=== PATIENT | female | born 1955 | race Caucasian/White ===

== ENCOUNTER 2016-11-17 12:27 | Inpatient (IN) | payer MEDICAID ==
[~2016-11-17] VITALS: Ht 157.5 cm; Wt 48.0 kg
--- NOTE | ~2016-11-17 | OR ---
ADMIT: 11/17/2016 RM/LOC: 307 [facility] MR#: [id number] [address] [address] JIM BRYANT [address] [place] [address] Operative/Delivery Room Report SEX: F AGE: 61 : 1955 SURGERY DATE: 11/21/2016 SURGEON: Addison Oliveira MD PREOPERATIVE DIAGNOSES: Anemia, upper GI bleed. POSTOPERATIVE DIAGNOSIS: Duodenal ulcer with active bleeding. PROCEDURE PERFORMED: Upper endoscopy with injection and cauterization of bleeding duodenal ulcer. ANESTHESIA: Sedation. ESTIMATED BLOOD LOSS: Approximately 50 mL of blood within the stomach and duodenum. DESCRIPTION OF PROCEDURE: After appropriate informed consent was obtained, the patient was brought to the endoscopy suite. IV sedation was provided. A well-lubricated endoscope was introduced and passed down the esophagus. The esophageal mucosa appeared normal throughout. Once again in the stomach though, there was a fair bit of blood and fresh clot within the stomach. This was suctioned out. The gastric mucosa really appeared normal throughout, but her stomach was quite dilated. I was able to get through the ampulla which was wide open in the duodenal bulb, and there was fresh blood in that area. Beginning into the second portion of the duodenum became quite a challenge just because of the distended nature of her stomach, the scope kept looping up. It was difficult to get any forward pressure and to get around the curve of the duodenum into the second portion. Ultimately, I had to roll her onto her back and used pressure on her abdomen just to hold the stomach from being so large. With some pressure on the outside of her stomach and then with the scope, I was able to advance the scope down into the duodenum further. There was almost a little bit of a stricture in the second portion of the duodenum, but I was able to pop through that area, and the remainder of the second portion and the third portion of the duodenum appeared normal. As I pulled the scope slowly back, I irrigated all the clot and fluid out of there. I was able to find just a very small ulceration right in the midportion of the second portion of the duodenum. There was some active bleeding from it. So, I used the epinephrine mixture and injection needle. I was able to inject ADMIT: 11/17/2016 RM/LOC: 307 [facility] MR#: [id number] 2620 [facility] [address] [place], [place] [address] JIM BRYANT [address] [place] [address] Operative/Delivery Room Report SEX: F AGE: 61 : 1955 circumferentially around this ulcer and then right in the center of it. I also used the hot biopsy forceps to further cauterize the base of this ulcer. I watched it for several minutes and it did appear hemostatic. The scope was then pulled back to stomach. Again, the gastric mucosa was irrigated off. I retroflexed the scope, did not see any evidence of a hiatal hernia. I then reinspected the second portion of the duodenum. Again, it was just difficult to get down to that area with the scope, but it appeared dry and there was no further bleeding from that duodenal ulcer. The stomach was then deflated and the scope withdrawn without apparent complications. The patient tolerated the procedure well and was taken to the recovery room in stable condition. Addison Oliveira MD/ brittani JOB #: [id number] CC: Darren Benjamin, Attending Physician Darren Benjamin, Family Physician Darren Benjamin, DO
[~2016-11-17 12:27] MED LIST: AMBIEN DPS10 MG PO; AMBIEN10 MG PO; ASA CHILDREN'S81 MG PO; ASA325 MG PO; ASPIR 8181 MG PO; AUGMENTIN875 MG PO; BUSPAR DPS10 MG PO; BUSPAR5 MG PO; DELTASONE DPS10 MG PO; DELTASONE DPS20 MG PO; DULERA 200/58.8 GM IH; DUONEB DPS3 ML IH; DUONEB DPS3 ML PO; IMODIUM DPS2 MG PO; ISOPTIN SR TAB120 MG PO; LEVAQUIN DPS500 MG PO; LEVAQUIN500 MG PO; MAALOX DPS30 ML PO; MEDROL DOSEP4 MG/TAB PO; NORCO 5-325 TA1 EACH PO; OMNICEF DPS300 MG PO; PEPCID DPS20 MG PO; PROTONIX40 MG PO; PROVENTIL HFA6.7 GM IH; ROBITUSSIN AC D30 ML PO; SPIRIVA18 MCG IH; SURFAK DPS240 MG PO; SURFAK240 MG PO; SYMBICORT 16010.2 GM IH; SYMBICORT160 MCG/6 IH; SYMBICORT80 MCG/6.9 IH; THERA1 EACH PO; TYLENOL DPS325 MG PO; TYLENOL-DPS650 MG PR; TYLENOL325 MG PO; ULTRAM DPS50 MG PO; XANAX DPS1 MG PO; XANAX1 MG PO; XOPENEX HFA15 GM IH; ZITHROMAX500 MG PO; ZOLOFT DPS100 MG PO; ZOLOFT DPS50 MG PO
--- NOTE | 2016-11-23 08:25 | HP ---
ADMIT: 11/17/2016 RM/LOC: W.12 [facility] MR#: [id number] [facility]#: [id number] [address] [address] JIM BRYANT [address] [place] [address] History and Physical SEX: F AGE: 61 : 1955 DATE OF SERVICE: 11/17/2016 REASON FOR HOSPITALIZATION: Acute exacerbation of COPD. HISTORY OF PRESENT ILLNESS: This is a 61-year-old female patient of [place], who has chronic severe COPD. She has been struggling over the last week at home with increased cough, congestion, sputum production, shortness of breath, weakness, and in fact fell while walking to the bathroom recently and received a contusion to her right periorbital area. She came to the clinic today where she was found to have wheezes and resting dyspnea. She has an O2 saturation of 88% and is now being admitted for further care. PAST MEDICAL HISTORY: As outlined with COPD, severe nature, recurrent hospitalization for exacerbation of such. She has a history of cannabis and drug abuse. She has a medical history of anxiety and depression. SOCIAL HISTORY: She is on and off illicit drugs. She is , lives at home with her . FAMILY HISTORY: Noncontributory. MEDICATIONS: 1. Alprazolam. 2. Aspirin. 3. Buspirone. 4. Dulera. 5. DuoNebs. 6. Maalox. 7. Oxygen. 8. Sertraline. 9. Spiriva. 10.Verapamil. 11.Xopenex. 12.Zithromax. 13.Zofran. For specifics of dosing, please refer to her admission orders. REVIEW OF SYSTEMS: As outlined above. No nausea, vomiting, diarrhea, constipation, or bleeding. PHYSICAL EXAMINATION: GENERAL: She is thin, frail, and in no apparent distress. ADMIT: 11/17/2016 RM/LOC: W.12 [facility] MR#: [id number] [address] [address] JIM BRYANT [address] [place] [address] History and Physical SEX: F AGE: 61 : 1955 VITAL SIGNS: Her blood pressure is 108/62. She does have some congestion and dyspnea in conversation. Sat is 88% to 91% with 2.5 L of oxygen per nasal cannula. NECK: No JVD or bruit. LUNGS: Bilateral rhonchi posteriorly. HEART: Regular, thin. EXTREMITIES: No edema. IMPRESSION: Acute exacerbation of chronic obstructive pulmonary disease. PLAN: Admit IV steroids, IV antibiotic therapy, nebulized treatments, and support. Darren Benjamin DO/ modl JOB #: [id number] CC: Darren Benjamin, Attending Physician Darren Benjamin, Family Physician
[2016-12-01] MEDS ORDERED: LORTAB 7.5-3251 EACH PO (14:48)
[2016-12-01] MEDS ORDERED: DELTASONE DPS10 MG PO (14:50)
--- NOTE | 2016-12-15 09:04 | OR ---
ADMIT: 11/17/2016 RM/LOC: 311 [facility] MR#: [id number] [address] [address] JIM BRYANT [address] [place] [address] Operative/Delivery Room Report SEX: F AGE: 61 : 1955 SURGERY DATE: 11/22/2016 SURGEON: Addison Oliveira MD PREOPERATIVE DIAGNOSES: Free air, free fluid, probable perforated bowel. POSTOPERATIVE DIAGNOSIS: Duodenal ulcer in the second portion of the duodenum. PROCEDURE PERFORMED: 1. Exploratory laparotomy, opening of perforated duodenal ulcer in the 2nd portion of the duodenum and closure with a Fxzzxmv-Abvtkimu-hxec pyloroplasty. 2. Placement of feeding jejunostomy. MUTUAL FUND ACCOUNTANT: DEANDRE Loredo ANESTHESIA: General endotracheal. ESTIMATED BLOOD LOSS: Approximately 100 mL. DESCRIPTION OF PROCEDURE: After appropriate informed consent was obtained, the patient was brought to the operating room. It should be noted that she unfortunately had quite a bit of pain that began suddenly yesterday and has continued on to the point where I ordered a CT scan to try to evaluate what was causing this, and that showed free air and free fluid in the abdomen mostly near where her duodenal ulcer was located, so I felt that she required laparotomy to repair this and to evacuate all the fluid and air in her belly. Once the patient was asleep, her abdomen was prepped and draped in a sterile fashion. An upper midline incision was created. This was carried deep with cautery. The peritoneum was opened sharply. The remainder of the incision was opened with cautery. Once in the abdomen, there was a fair bit of ascitic fluid and bilious fluid in the abdomen. Obviously, some free air also. She had obvious bowel perforation and intraabdominal sepsis from this. I did inspect her stomach which looked normal, but there was a lot of edema and fluid in the tissue around the duodenum. So, I started by opening the hepatic flexure attachments, mobilizing the colon down a little bit and getting down to the duodenum, and then kocherizing and mobilizing the duodenum from lateral to medial. In doing so, again there was a lot of bile stained fluid and tissue in the retroperitoneum. As I reflected the duodenum up, the second portion of the duodenum appeared to be where the perforation was located. It is about a cm past the pylorus. I was able to identify just a small, only about 2 or 3 mm diameter hole, and this was clearly where the fluid and gastric and bilious contents were escaping. Since she had continued to have maroon-colored stools and had dropped her hemoglobin, I wanted to make sure there was not something still actively bleeding in the duodenum, so I did open using this ulceration as my starting point. I opened the duodenum and since it was close to the pylorus, I ended up opening through the pylorus also, and I opened this in a lengthwise fashion along the length of the duodenum back ADMIT: 11/17/2016 RM/LOC: 311 [facility] MR#: [id number] [address] [address] [place] [address] Operative/Delivery Room Report SEX: F AGE: 61 : 1955 onto the stomach. I then extended that incision a little bit distally on the duodenum also to give good exposure to the 2nd portion of the duodenum, the duodenal bulb, the duodenal bulb, and even into the distal stomach. There did not appear to be anything actively bleeding, so I was comfortable that there was no ongoing blood loss from the duodenum. I had to close this opening, and I closed it in a transverse fashion, a Dpqhjdt-Wiakvnwb-fhhk pyloroplasty closure. This was done with 2 3-0 PDS sutures started on either end in a running fashion and tied in the middle. Then, I used multiple 3-0 silk sutures to further imbricate that closure with serosal sutures. With the duodenum closed, I placed a 19-Botswanan round Eben drain through a separate stab incision on the patient's right side. This was placed up around my closure site. The abdomen was then copiously irrigated out with a couple L of saline. All the bilious fluid and gastric contents were suctioned out. I then elected to place a feeding jejunostomy since she was already malnourished and would have an NG tube for a while and then could feed her for a while and wanted to be able to give her enteral nutrition. So, I identified the ligament of Treitz and went about 15 cm distal to that, I placed a pursestring suture with 3-0 silk suture in the antimesenteric surface of the jejunum, made a small incision, and placed a 12-Botswanan red rubber catheter in through that incision. I tied down the pursestring suture, and then I wet sealed in the feeding tube with several additional 3-0 silk sutures. The stab incision was made in the left upper quadrant. The end of the feeding tube was brought up and out through the abdominal wall, and then a couple of my silk sutures were used to tack the jejunum up against the abdominal wall. With this accomplished, and when I was satisfied with hemostasis, the midline fascia wound was then closed with running looped #1 PDS sutures starting at either end and tied in the middle. The skin was then loosely closed with skin anabella. The drains were sewn into place and the drain was placed to bulb suction, and the catheter plug was placed in the jejunal feeding tube. Edy Zarate assisted in this entire procedure. His help was necessary for retraction. Addison Oliveira MD/ brittani JOB #: [id number] CC: Darren Benjamin, Attending Physician Darren Benjamin, Family Physician Darren Benjamin, DO
--- NOTE | 2016-12-15 09:04 | CO ---
ADMIT: 11/17/2016 RM/LOC: 307 [facility] MR#: [id number] [address] [address] JIM BRYANT [address] [place] [address] Consultation SEX: F AGE: 61 : 1955 DATE OF CONSULTATION: 11/21/2016 ATTENDING PHYSICIAN: Darren Benjamin CONSULTING PHYSICIAN: Addison Oliveira MD CHIEF COMPLAINT: Anemia and melena, probable upper GI bleed. HISTORY OF PRESENT ILLNESS: This is a 61-year-old female patient, who I was asked to see in surgical consultation. The patient has had acute blood loss. Hemoglobin from 10 down around 7, and obvious melenic stools. No abdominal pain with this. She has had an ulcer in the past, it sounds like. On exam, her abdomen is soft, thin, nondistended, and nontender. ASSESSMENT: Probable upper GI bleed. PLAN: I have recommended proceeding with EGD. I have gone through risks and benefits of this procedure. She understands and agrees procedure. Addison Oliveira MD/ brittani JOB #: [id number] CC: Darren Benjamin, Attending Physician Darren Benjamin, Family Physician
[2016-12-28] MEDS ORDERED: ACETADOTE D200 MG/ML IH (16:18)
[2016-12-28] MEDS ORDERED: CARAFATE DPS1 GM PO (16:20)
[2016-12-28] MEDS ORDERED: KLOR-CON20 MEQ PO (16:21)
[2016-12-28] MEDS ORDERED: VANCOCIN125 MG PO (16:21)
[2016-12-28] MEDS ORDERED: IMODIUM DPS2 MG PO (16:22)
[2016-12-28] MEDS ORDERED: AMOXICILLIN875 MG PO (16:23)
--- NOTE | 2017-01-18 08:23 | DS ---
ADMIT: 11/17/2016 RM/LOC: 431 [facility] MR#: [id number] ACC#: [id number] [address] [address] JIM BRYANT [address] [place] [address] Discharge Summary SEX: F AGE: 61 : 1955 ADMISSION DATE: 11/17/2016 DISCHARGE DATE: 11/30/2016 REASON FOR HOSPITALIZATION: Acute exacerbation of chronic obstructive pulmonary disease. HISTORY OF PRESENT ILLNESS: This is a 61-year-old female patient, who has chronic severe COPD, end-stage disease. She had been struggling over the week prior to admission at home with increased cough, congestion, sputum production, shortness of breath, and weakness. She had fallen while walking to her bathroom and received contusions over her periorbital area. She came to my clinic where she was found to have an O2 saturation of 88%, wheezes, and resting dyspnea. We decided to admit her for further care and management. HOSPITAL COURSE: She was admitted to the hospital, started on her usual home regimen of therapies. She did have some suspected upper GI bleeding and anemia, and on further evaluation we asked Dr. Oliveira to investigate and consult. She went to the procedure room, and underwent an upper GI endoscopy where she was found to have a duodenal ulcer with active bleeding. This was injected and cauterized. We monitored her hemoglobin, hematocrit thereafter and it remained stable with no further evidence of bleeding. We did place her on appropriate proton pump inhibitor and ulcer management. She was also on steroids, IV Zosyn, DuoNeb, and management of her COPD. She was severely malnourished. We did ask Nutrition to consult and assist with caloric supplement recommendations. On chest x-ray, she was found to have a right pulmonary opacities consistent with pneumonia. Gram stain, C and S was performed. We did not continue with aspirin or Lovenox once we found the bleeding ulcer. We did give her packed red blood cells because she was tachycardic and had acute blood loss anemia. On 11/22, we decided we could wean her steroids and downgraded her status to telemetry. She was stable at that point. She was complaining of tender abdomen, and Dr. Oliveira did have her undergo CAT scan evaluation on the . At that point, she was found to have evidence of perforation, and Dr. Oliveira took her to the operating room for laparotomy. He found that her duodenal ulcer had perforated. He did surgically repair this perforation and placed a J-tube for nutritional support. She had a slow postoperative recovery, and we did provide her nutritional support through her J-tube. We managed her pain and anxiety, and after long hospital course, she was finally able to progress and receive physical therapy. We however felt that she was too weak to be returned to her home setting, and therefore she was agreeable to [facility]. On 11/28, we began a transition to oral medication management, and on 11/29, we ADMIT: 11/17/2016 RM/LOC: 431 [facility] MR#: [id number] [address] [address] [facility] [address] Discharge Summary SEX: F AGE: 61 : 1955 made preparations for transition to skilled care. On the morning of 11/30/2016, she was dismissed to [facility] with tube feedings. She was free to return to see me in 10 to 14 days with a repeat complete blood cell count. She was to go on a tapering course of prednisone. FINAL DIAGNOSES: 1. Exacerbation of chronic obstructive pulmonary disease with pneumonia. 2. Perforated duodenal ulcer with surgical repair. 3. Acute blood loss anemia. 4. Malnutrition. 5. Chronic pain. 6. Severe chronic obstructive pulmonary disease. Darren Benjamin DO/ ovil JOB #: [id number] CC: Darren Benjamin DO, Attending Physician Darren Benjamin DO, Family Physician
[2017-01-23] MEDS ORDERED: VORICONAZOLE200 MG PO (15:15)
[2017-02-17] MEDS ORDERED: VFEND200 MG PO (14:09)
[2017-02-17] MEDS ORDERED: NITROSTAT0.4 MG SL (14:11)
[2017-03-04] MEDS ORDERED: PROTONIX40 MG PO (20:09)
[2017-03-04] MEDS ORDERED: MUCINEX600 MG PO (20:09)
[2017-03-04] MEDS ORDERED: ACETYLCYSTEINE 20% IH (20:12)
[2017-03-04] MEDS ORDERED: SPIRIVA18 MCG IH (20:13)
[2017-03-04] MEDS ORDERED: HYDROCODON-ACE1 EAC6 PO (20:14)
[2017-03-04] MEDS ORDERED: XANAX DPS1 MG PO (20:14)
[2017-03-04] MEDS ORDERED: TYLENOL325 MG PO (20:14)
[2017-03-04] MEDS ORDERED: FLAGYL-DPS500 MG PO (20:15)
[2017-03-04] MEDS ORDERED: SLOW-MAG71.5 MG PO (20:16)
[2017-03-04] MEDS ORDERED: TIAZAC180 MG PO (20:16)
[2017-03-04] MEDS ORDERED: COLACE-DPS100 MG PO (20:16)
[2017-03-04] MEDS ORDERED: MAALOX DPS30 ML PO (20:16)
[2017-03-04] MEDS ORDERED: PROVENTIL2.5 MG/3 M IH (20:17)
[2017-03-04] MEDS ORDERED: LASIX DPS40 MG PO (20:17)
[2017-03-04] MEDS ORDERED: KLOR-CON M2020 ME1 PO (20:18)
[2017-04-12] MEDS ORDERED: VIGAMOX3 ML OD (12:17)
[2017-04-12] MEDS ORDERED: DUREZOL5 ML OD (12:19)
[2017-04-12] MEDS ORDERED: CULTURELLE1 CAP PO (12:19)
[2017-04-12] MEDS ORDERED: VANCOCIN125 MG PO (12:20)
[2017-04-12] MEDS ORDERED: PEPCID DPS20 MG PO (12:20)
[2017-04-12] MEDS ORDERED: [UNRECOGNIZED DRUG - OTHER] OD (12:21)
[2017-05-17] MEDS ORDERED: PROVENTIL2.5 MG/3 M IH (13:41)
[2017-05-17] MEDS ORDERED: DELTASONE DPS20 MG PO (13:43)
[2017-05-27] MEDS ORDERED: COLACE-DPS100 MG PO (14:06)
[2017-05-27] MEDS ORDERED: AUGMENTIN 875-1 EACH PO (14:06)
[2017-05-27] MEDS ORDERED: MAALOX DPS30 ML PO (14:07)
[2017-05-27] MEDS ORDERED: IMODIUM DPS2 MG PO (14:07)
[2017-06-12] MEDS ORDERED: ACETYLCYST200 MG/11 IH (14:25)
[2017-06-12] MEDS ORDERED: DULERA 200/58.8 GM IH (14:25)
[2017-06-12] MEDS ORDERED: VFEND200 MG PO (14:26)
[2017-06-12] MEDS ORDERED: DUONEB DPS3 ML IH (14:26)
[2017-06-12] MEDS ORDERED: SPIRIVA18 MCG IH (14:26)
[2017-06-12] MEDS ORDERED: PRILOSEC DPS20 MG PO (14:26)
[2017-06-12] MEDS ORDERED: POTASSIUM CHLO20 ME2 PO (14:26)
[2017-06-12] MEDS ORDERED: ZOLOFT100 MG PO (14:27)
[2017-06-12] MEDS ORDERED: DILTIAZEM ER180 M1 PO (14:27)
[2017-06-12] MEDS ORDERED: DELTASONE DPS10 MG PO (14:27)
[2017-06-12] MEDS ORDERED: MAGNESIUM30 MG PO (14:28)
[2017-06-12] MEDS ORDERED: NORCO 5-325 TA1 EACH PO (14:28)
[2017-06-12] MEDS ORDERED: PROAIR RESPICL90 MCG IH (14:29)
[2017-06-12] MEDS ORDERED: TYLENOL DPS325 MG PO (14:29)
[2017-06-12] MEDS ORDERED: LIDOPATCH1 EACH TD (14:31)
== END 2016-11-30 09:21 | DRG 981 ==
LOC: 4PCU 12:27 → 3ICU 12:27 → WOR 12:27 → 4PCU 16:20 → 3ICU 11-21 14:42 → 4PCU 11-25 23:30
PROVIDERS: ADMIT Internal Medicine
PROC: 0W3P8ZZ Control Bleeding in Gastrointestinal Tract, Via Natural or Artificial Opening Endoscopic (ICD-10-PCS; 2016-11-21)
PROC: 0DHA0UZ Insertion of Feeding Device into Jejunum, Open Approach (ICD-10-PCS; principal; 2016-11-22)
PROC: 0DQ90ZZ Repair Duodenum, Open Approach (ICD-10-PCS; principal; 2016-11-22)
PROC: 0DQ70ZZ Repair Stomach, Pylorus, Open Approach (ICD-10-PCS; principal; 2016-11-22)
PROC: 30233N1 Transfusion of Nonautologous Red Blood Cells into Peripheral Vein, Percutaneous Approach (ICD-10-PCS; 2016-11-24)
DX: J44.0 Chronic obstructive pulmonary disease with (acute) lower respiratory infection (principal); J18.9 Pneumonia, unspecified organism; K26.6 Chronic or unspecified duodenal ulcer with both hemorrhage and perforation; J96.10 Chronic respiratory failure, unspecified whether with hypoxia or hypercapnia; E46 Unspecified protein-calorie malnutrition; D62 Acute posthemorrhagic anemia; Z68.1 Body mass index [BMI] 19.9 or less, adult; J44.1 Chronic obstructive pulmonary disease with (acute) exacerbation; F32.9 Major depressive disorder, single episode, unspecified; F41.9 Anxiety disorder, unspecified; Z79.82 Long term (current) use of aspirin; Z79.52 Long term (current) use of systemic steroids

== ENCOUNTER 2016-12-18 10:29 | Observation (INO) | payer MEDICAID ==
[~2016-12-18] VITALS: Ht 157.5 cm; Wt 47.5 kg
--- NOTE | ~2016-12-18 | CO ---
ADMIT: 12/18/2016 RM/LOC: 421 [facility] MR#: [id number] [address] [address] JIM BRYANT [address] [place] [address] Consultation SEX: F AGE: 61 : 1955 DATE OF CONSULTATION: 12/26/2016 ATTENDING PHYSICIAN: Darren Benjamin CONSULTING PHYSICIAN: Seth Castro MD HISTORY OF PRESENT ILLNESS: She is 61. Jim is hospitalized on numerous occasions with recurrent pneumonia. She has been oxygen dependent at home for the last 1 year. Jim used to smoke pot, which she thinks she has given up 1 month ago. She is also narcotic dependent, takes her 's narcotics. Her is a colon cancer survivor. Jim has not been a tobacco abuser. She denies any alcohol use. 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 She has DuoNeb at home, she takes 4 times a day. She uses Dulera and also Spiriva. She was in the hospital with bleeding upper GI ulcer, had EGD. She had a feeding tube placed. She also had an exploratory laparotomy and pyloroplasty done at that time by Dr. Oliveira. She was in the hospital from the 12th of this month and with pneumonia. She is getting antibiotics in the form of vancomycin and Zosyn. She also has C. diff colitis, which is being treated with oral vancomycin and Flagyl. She states she has not lost any weight. She has always been very skinny so her mother. She has both her parents alive. She has 2 sisters, none of them known to have COPD besides herself. She does bring up some sputum rarely but no blood. There has been colored sputum in the past also. She does get some chest pain going outside. She was told she had asthma. PHYSICAL EXAMINATION: GENERAL: She is cachetic, but very alert, very appropriate. EXTREMITIES: There was no clubbing. There was no edema. No calf tenderness. ABDOMEN: Fresh scar in the upper abdomen. No organomegaly. There was no heart murmur. She has rhonchi bilaterally. No lymphadenopathy. I reviewed her chest x-rays, which show COPD changes and infiltrate in the left lower lung field. Really not all that much change. I certainly cannot left lower lobe consolidation as that has been reported. She is getting nebulized treatment. I am going to add acapella, and a bronchoscopy ADMIT: 12/18/2016 RM/LOC: 421 [facility] MR#: [id number] [address] [place] [address] [facility] [place] [address] Consultation SEX: F AGE: 61 : 1955 will be done to clear tracheobronchial secretions tomorrow. IMPRESSION: 1. Recurrent pneumonia. 2. Chronic obstructive pulmonary disease, appears severe. Have to look for alpha-1 antitrypsin deficiency. Would like to get a PFT and a bronchoscopy in the morning. She probably will benefit from pulmonary rehab. I appreciate the referral. I will plan to see her with bronchoscopy tomorrow. Seth Castro MD/ brittani JOB #: [id number] CC: Darren Benjamin, Attending Physician Darren Benjamin, Family Physician Darren Benjamin, DO
--- NOTE | ~2016-12-18 | CO ---
ADMIT: 12/18/2016 RM/LOC: 421 [facility] MR#: [id number] [address] [address] JIM BRYANT [address] [place] [address] Consultation SEX: F AGE: 61 : 1955 DATE OF CONSULTATION: 12/19/2016 ATTENDING PHYSICIAN: Darren Benjamin CONSULTING PHYSICIAN: Addison Oliveira MD ADDENDUM: This is a patient that I know well, I just treated her for perforated duodenal ulceration, this was really a difficult surgery, it took a while to get her recovered from all of that, but ultimately, she has done well, she spent sometime at a skilled unit or basically a longterm in [place], and has been discharged from there to home and is being cared for by her . She was doing okay for a few days, but then developed some worsening abdominal pain, diarrhea. So, she was admitted last night or early this morning with abdominal pain ago. She had a CT scan done, which shows a diffuse colitis. She is essentially a prime setup for C. difficile colitis having been on antibiotics, PPI, has been in the hospital for a while, and then also had been in the longterm for a while, so, I suspect that is what is going on. Her C. difficile has not come back yet. She has not been able to give a sample since she has been here. Dr. Benjamin has actually started her on Flagyl orally. On exam, her abdomen is soft, but she is tender throughout. She essentially has pain issues all the time, but I do not doubt that she has some pain with this. ASSESSMENT: Probable clostridium difficile colitis. PLAN: I am going to add oral Vanco on top of the Flagyl that she is already getting just because she has already a pretty ill, cachectic patient to start with and do not want this to develop into anything more serious. So, we will see how she does with that. I am going to hold off on endoscopy for right now until hopefully we get some stool studies back. Addison Oliveira MD/ brittani JOB #: [id number] CC: Darren Benjamin, Attending Physician Darren Benjamin, Family Physician
--- NOTE | ~2016-12-18 | HP ---
ADMIT: 12/18/2016 RM/LOC: 421 [facility] MR#: [id number] [address] [address] JIM BRYANT [address] [place] [address] History and Physical SEX: F AGE: 61 : 1955 DATE OF SERVICE: REASON FOR HOSPITALIZATION: A 61-year-old female patient, who presented with abdominal pain. She had recently been admitted for perforated ulcer that was surgically repaired. She also has underlying COPD, chronic substance abuse, and chronic pain. At the time of presentation, she had a white count of 48,000, and CT scan of the abdomen and pelvis showed a colitis but also a pneumonia. We felt that she needed to be readmitted for management of her pain and treatment of the underlying pneumonia. PAST MEDICAL HISTORY: As outlined; 1. Anxiety. 2. Depression. 3. Chronic pain. 4. Chronic substance abuse. 5. Severe COPD. 6. Malnutrition. 7. Recent duodenal ulcer with acute blood loss anemia and surgical repair secondary to perforation. 8. History of chronic tobacco abuse. SOCIAL HISTORY: She is . Lives near [place] with her . FAMILY HISTORY: Noncontributory. MEDICATIONS: Include: 1. Xopenex. 2. Sertraline. 3. Buspirone. 4. Xanax. 5. DuoNebs. 6. Acetylcysteine/Mucomyst. 7. Pantoprazole. 8. Dulera. 9. Tylenol. 10.Spiriva. 11.Maalox. 12.Aspirin. For specifics of dosing, refer to her admission orders. PHYSICAL EXAMINATION: GENERAL: She is very thin and frail in general appearance, appearing older than her stated age. VITAL SIGNS: She was initially afebrile with normal vital signs. LUNGS: She had a left lower lobe rhonchi. ABDOMEN: Diffuse abdominal tenderness. EXTREMITIES: No peripheral edema. LABORATORY DATA: Her white blood cell count 45,800, hemoglobin 9.1. Magnesium 1.2. Chest x-ray, left lower lobe pneumonia. CAT scan, diffuse ADMIT: 12/18/2016 RM/LOC: 421 [facility] MR#: [id number] [address] [address] MANNY JIM Santosh [address] [place] [address] History and Physical SEX: F AGE: 61 : 1955 nonspecific colitis. IMPRESSION: 1. Pneumonia. 2. Chronic obstructive pulmonary disease. 3. Colitis. 4. Anemia. PLAN: Admit, antibiotics, nebulized treatments, steroids, watch hemoglobin and hematocrit, check stool for C. difficile and cover with Flagyl, give her Pain Management, replace her magnesium, and ask Surgery to consult for possible colonoscopy assessment. Darren Benjamin DO/ brittani JOB #: [id number] CC: Darren Benjamin DO, Attending Physician Darren Benjamin DO, Family Physician
[~2016-12-18 10:29] MED LIST changes: +LORTAB 7.5-3251 EACH PO
--- NOTE | 2016-12-19 15:40 | ER ---
ADMIT: 12/18/2016 RM/LOC: 421 [facility] MR#: [id number] [address] [address] JIM BRYANT [address] [place] [address] Emergency Room Report SEX: F AGE: 61 : 1955 DATE: ADDENDUM: This is a 61-year-old white female coming with abdominal pain. What she had just recently was a perforated ulcer that was operated on. This was done on, I think, 11/17 or 11/18. Recently, she also has COPD as well as other problems. She is a chronic marijuana user as well. She is quite cachectic. She had come in today just what was pain. She had a white count of 48,[address] of the abdomen and pelvis showed colitis but also pneumonia. She evidently had a feeding tube for a while too that they had pulled out. Lactate and procalcitonin, all else is negative. Her pressures have been fine. We did treat her with antibiotics, with Zosyn to start. I spoke with Dr. Benjamin, will need to admit her for pain control as well as rule out sepsis. CONDITION ON DISCHARGE: Serious but stable. Edy Urban MD/ brittani JOB #: [id number] CC: Darren Benjamin DO, Attending Physician Darren Benjamin DO, Family Physician
[2016-12-28] MEDS ORDERED: ACETADOTE D200 MG/ML IH (16:18)
[2016-12-28] MEDS ORDERED: CARAFATE DPS1 GM PO (16:20)
[2016-12-28] MEDS ORDERED: VANCOCIN125 MG PO (16:21)
[2016-12-28] MEDS ORDERED: KLOR-CON20 MEQ PO (16:21)
[2016-12-28] MEDS ORDERED: IMODIUM DPS2 MG PO (16:22)
[2016-12-28] MEDS ORDERED: AMOXICILLIN875 MG PO (16:23)
--- NOTE | 2017-01-02 10:28 | OR ---
ADMIT: 12/18/2016 RM/LOC: 421 [facility] MR#: [id number] [address] [address] JIM BRYANT [address] [place] [address] Operative/Delivery Room Report SEX: F AGE: 61 : 1955 SURGERY DATE: 12/27/2016 SURGEON: Seth Castro MD PROCEDURE: Bronchoscopy. PREOPERATIVE DIAGNOSES: 1. Recurrent bronchitis. 2. Pneumonia. POSTOPERATIVE DIAGNOSES: 1. Recurrent bronchitis. 2. Pneumonia. The bronchoscopy was done in the OR under LMA intubation. The vocal cord moved normally. There was excess slight yellowish mucus seen on both sides, which could be removed easily with suctioning. Bronchoalveolar lavage was taken from the lingula, which would be submitted for microbiological and cytological studies. Procedure was well tolerated. There were no complications encountered. Seth Castro MD/ brittani JOB #: [id number] CC: Darren Benjamin, Attending Physician Darren Benjamin, Family Physician Darren Benjamin DO
--- NOTE | 2017-01-18 08:23 | DS ---
ADMIT: 12/18/2016 RM/LOC: 421 [facility] MR#: [id number] [address] [address] JIM BRYANT [address] [place] [address] Discharge Summary SEX: F AGE: 61 : 1955 ADMISSION DATE: 12/18/2016 DISCHARGE DATE: 12/27/2016 REASON FOR HOSPITALIZATION: Abdominal pain, dyspnea, cough, and pneumonia. HISTORY OF PRESENT ILLNESS: A 61-year-old female patient, recently hospitalized with perforated duodenal ulcer and exacerbation of COPD, pneumonia. She returned to the emergency room with abdominal pain and dyspnea/weakness, cough, and congestion. She was found to have a colitis on her CAT scan abdomen as well as pneumonia on chest x-ray. HOSPITAL COURSE: She was admitted to the hospital, given magnesium sulfate for hypomagnesemia. We followed her CBC. Checked stool for C. difficile because of the colitis findings on CAT scan. I did start her on Flagyl. The C. difficile study was ultimately positive. I did have Surgery consult for possible evaluation but after finding the positive C. difficile study, we decided to postpone the idea of colonoscopy and biopsies. I put her on Protonix and Carafate to cover her recent perforated duodenal ulcer and hemorrhage. We gave her IV fluids as well as antibiotic therapy and Zosyn to cover her pneumonia. Her pneumonia did not resolve by chest x-ray. We therefore had Pulmonary see her, and the optical goods worker Dr. Castro took her to the procedure room and performed a bronchoscopy where he found significant mucus plugs, which he cleared and sent for pathology culture etc. After the bronchoscopy was performed, her chest x-ray improved significantly. She was hypokalemic during her hospital stay and this was replaced with IV and oral potassium supplementation. She complained of pain as it is a chronic issue for her. We did try to gently manage this noting her history of use, abuse, and addiction. We also gave her nutritional support. After her bronchoscopy, she was feeling well, felt that she wanted to be dismissed home. We did arrange for dismissal with the approval of Dr. Castro. We are going to follow up in the office within a week to 10 days to review her sputum bronchoalveolar lavage findings. FINAL DIAGNOSES: She was dismissed with final diagnoses: 1. Pneumonia. 2. Clostridium difficile colitis. 3. Chronic pain. 4. Severe chronic obstructive pulmonary disease. 5. Malnutrition. 6. Healthcare-acquired pneumonia. DISCHARGE MEDICATIONS: She was dismissed on: 1. BuSpar. ADMIT: 12/18/2016 RM/LOC: 421 [facility] MR#: [id number] [address] [address] [facility] [place] [address] Discharge Summary SEX: F AGE: 61 : 1955 2. Carafate. 3. Klor-Con. 4. Mucinex. 5. Protonix. 6. Vancomycin oral for seven days. 7. Zoloft. 8. Dulera. 9. DuoNebs. 10.Mucomyst. 11.Spiriva. For specifics of dosing, please refer to her dismissal orders. I also gave her a limited prescription of hydrocodone 5/325, 1-2 p.o. q.6h p.r.n., #50. Darren Benjamin DO/ modl JOB #: [id number] CC: Darren Benjamin DO, Attending Physician Darren Benjamin DO, Family Physician
--- NOTE | 2017-01-18 10:44 | CO ---
ADMIT: 12/18/2016 RM/LOC: 421 [facility] MR#: [id number] [address] [address] JIM BRYANT [address] [place] [address] Consultation SEX: F AGE: 61 : 1955 DATE OF CONSULTATION: 12/19/2016 ATTENDING PHYSICIAN: Darren Benjamin CONSULTING PHYSICIAN: Addison Oliveira MD REASON FOR CONSULTATION: Colitis. HISTORY OF PRESENT ILLNESS: Jim is a very pleasant, 61-year-old female, who states that since her last hospitalization about a month ago she has had continued abdominal pain and diarrhea. Her abdominal pain is diffused throughout her abdomen and sharp in nature. Her stools are described as being loose and dark, but denies any bright red blood or watery stools. She further denies any nausea or vomiting, fever, chills, or night sweats. Currently, she is being admitted for her left lower lobe pneumonia. Interestingly, we did see her during her prior admission where she underwent surgical management for a perforated pyloric ulcer. At that time, I do not recall her with any bowel issues. PAST MEDICAL HISTORY: Unchanged from previous admission. 1. COPD. 2. Anxiety and depression. PAST SURGICAL HISTORY: 1. Last EGD was 11/21/[address] Oliveira, which showed a bleeding duodenal ulcer. 2. Exploratory laparotomy, opening a perforated duodenal ulcer and closer with. 3. Zmkxinj-Dxbxxvxq-smwe pyloroplasty and placement of feeding jejunostomy. 4. tube performed by Dr. Oliveira. ALLERGIES: NO KNOWN DRUG ALLERGIES. MEDICATIONS: Well documented in chart. FAMILY HISTORY: Unchanged from previous admission, noncontributory. SOCIAL HISTORY: Unchanged from previous admission. She does have a history of narcotic abuse and polysubstance abuse. REVIEW OF SYSTEMS: CONSTITUTIONAL: The patient denies any fever, chills, or night sweats. The rest of a comprehensive 10-point review of systems was performed and all other systems are negative. PHYSICAL EXAMINATION: GENERAL: The patient is in no acute distress. She is alert and oriented. HEENT: Head is normocephalic and atraumatic. EOMS are intact. Conjunctivae free of icterus, erythema, or pallor. Pinnae, free of deformities. Nose, midline. No tracheal deviation. ADMIT: 12/18/2016 RM/LOC: 421 [facility] MR#: [id number] [address] [address] [facility] [place] [address] Consultation SEX: F AGE: 61 : 1955 NECK: Supple. SKIN: Negative for jaundice, clubbing, edema, pallor, or cyanosis. LUNGS: Normal respiratory effort. HEART: Distal pulses intact. Regular rate and rhythm. ABDOMEN: Soft and nondistended. Generalized diffuse throughout the abdomen with exquisite tenderness in the left lower quadrant. NEURO: Grossly intact. LABORATORY DATA: White blood cell count is 45. DIAGNOSTIC IMAGING: CT of abdomen and pelvis revealed diffuse colitis. ASSESSMENT: Colitis. PLAN: At this time. We will hold off colonoscopy and we will plan to do this at later time. In the meantime, we will be testing her stool and Dr. Benjamin has already got her started on oral Flagyl which we endorse. C. diff is currently pending, but we will continue to check stool for ova and parasites and enteric pathogens. The patient is agreement of this plan, had all her questions answered, and would like to proceed. Thank for the consultation of this patient. DEANDRE Loredo / Addison Oliveira MD / brittani JOB #: [id number] CC: Darren Benjamin, Attending Physician Darren Benjamin, Family Physician
[2017-01-23] MEDS ORDERED: VORICONAZOLE200 MG PO (15:15)
[2017-02-17] MEDS ORDERED: VFEND200 MG PO (14:09)
[2017-02-17] MEDS ORDERED: NITROSTAT0.4 MG SL (14:11)
[2017-03-04] MEDS ORDERED: MUCINEX600 MG PO (20:09)
[2017-03-04] MEDS ORDERED: PROTONIX40 MG PO (20:09)
[2017-03-04] MEDS ORDERED: ACETYLCYSTEINE 20% IH (20:12)
[2017-03-04] MEDS ORDERED: SPIRIVA18 MCG IH (20:13)
[2017-03-04] MEDS ORDERED: TYLENOL325 MG PO (20:14)
[2017-03-04] MEDS ORDERED: XANAX DPS1 MG PO (20:14)
[2017-03-04] MEDS ORDERED: HYDROCODON-ACE1 EAC6 PO (20:14)
[2017-03-04] MEDS ORDERED: FLAGYL-DPS500 MG PO (20:15)
[2017-03-04] MEDS ORDERED: SLOW-MAG71.5 MG PO (20:16)
[2017-03-04] MEDS ORDERED: COLACE-DPS100 MG PO (20:16)
[2017-03-04] MEDS ORDERED: MAALOX DPS30 ML PO (20:16)
[2017-03-04] MEDS ORDERED: TIAZAC180 MG PO (20:16)
[2017-03-04] MEDS ORDERED: LASIX DPS40 MG PO (20:17)
[2017-03-04] MEDS ORDERED: PROVENTIL2.5 MG/3 M IH (20:17)
[2017-03-04] MEDS ORDERED: KLOR-CON M2020 ME1 PO (20:18)
[2017-04-12] MEDS ORDERED: VIGAMOX3 ML OD (12:17)
[2017-04-12] MEDS ORDERED: CULTURELLE1 CAP PO (12:19)
[2017-04-12] MEDS ORDERED: DUREZOL5 ML OD (12:19)
[2017-04-12] MEDS ORDERED: VANCOCIN125 MG PO (12:20)
[2017-04-12] MEDS ORDERED: PEPCID DPS20 MG PO (12:20)
[2017-04-12] MEDS ORDERED: [UNRECOGNIZED DRUG - OTHER] OD (12:21)
[2017-05-17] MEDS ORDERED: PROVENTIL2.5 MG/3 M IH (13:41)
[2017-05-17] MEDS ORDERED: DELTASONE DPS20 MG PO (13:43)
[2017-05-27] MEDS ORDERED: AUGMENTIN 875-1 EACH PO (14:06)
[2017-05-27] MEDS ORDERED: COLACE-DPS100 MG PO (14:06)
[2017-05-27] MEDS ORDERED: IMODIUM DPS2 MG PO (14:07)
[2017-05-27] MEDS ORDERED: MAALOX DPS30 ML PO (14:07)
[2017-06-12] MEDS ORDERED: DULERA 200/58.8 GM IH (14:25)
[2017-06-12] MEDS ORDERED: ACETYLCYST200 MG/11 IH (14:25)
[2017-06-12] MEDS ORDERED: PRILOSEC DPS20 MG PO (14:26)
[2017-06-12] MEDS ORDERED: DUONEB DPS3 ML IH (14:26)
[2017-06-12] MEDS ORDERED: VFEND200 MG PO (14:26)
[2017-06-12] MEDS ORDERED: POTASSIUM CHLO20 ME2 PO (14:26)
[2017-06-12] MEDS ORDERED: SPIRIVA18 MCG IH (14:26)
[2017-06-12] MEDS ORDERED: DELTASONE DPS10 MG PO (14:27)
[2017-06-12] MEDS ORDERED: ZOLOFT100 MG PO (14:27)
[2017-06-12] MEDS ORDERED: DILTIAZEM ER180 M1 PO (14:27)
[2017-06-12] MEDS ORDERED: NORCO 5-325 TA1 EACH PO (14:28)
[2017-06-12] MEDS ORDERED: MAGNESIUM30 MG PO (14:28)
[2017-06-12] MEDS ORDERED: TYLENOL DPS325 MG PO (14:29)
[2017-06-12] MEDS ORDERED: PROAIR RESPICL90 MCG IH (14:29)
[2017-06-12] MEDS ORDERED: LIDOPATCH1 EACH TD (14:31)
== END 2016-12-27 17:25 | disposition home or self-care (01) ==
LOC: ER 10:29 → 4PCU 14:30
PROVIDERS: ADMIT Internal Medicine
PROC: 0B978ZX Drainage of Left Main Bronchus, Via Natural or Artificial Opening Endoscopic, Diagnostic (ICD-10-PCS; principal; 2016-12-27)
PROC: 0B938ZX Drainage of Right Main Bronchus, Via Natural or Artificial Opening Endoscopic, Diagnostic (ICD-10-PCS; principal; 2016-12-27)
DX: J40 Bronchitis, not specified as acute or chronic (principal); J18.9 Pneumonia, unspecified organism; J44.9 Chronic obstructive pulmonary disease, unspecified; M19.90 Unspecified osteoarthritis, unspecified site; F41.9 Anxiety disorder, unspecified; K52.9 Noninfective gastroenteritis and colitis, unspecified; F32.9 Major depressive disorder, single episode, unspecified; Z79.899 Other long term (current) drug therapy; Z88.5 Allergy status to narcotic agent; Z98.890 Other specified postprocedural states

== ENCOUNTER 2017-01-19 16:35 | Inpatient (IN) | payer MEDICAID ==
[~2017-01-19] VITALS: Ht 157.5 cm; Wt 42.6 kg
[~2017-01-19 16:35] MED LIST changes: +ACETADOTE D200 MG/ML IH; +AMOXICILLIN875 MG PO; +CARAFATE DPS1 GM PO; +KLOR-CON20 MEQ PO; +VANCOCIN125 MG PO
[2017-01-23] MEDS ORDERED: VORICONAZOLE200 MG PO (15:15)
--- NOTE | 2017-01-24 08:28 | HP ---
ADMIT: 01/19/2017 RM/LOC: 313 [facility] MR#: [id number] 2620 [facility] [address] [place] [address] JIM BRYANT [address] [place] [address] History and Physical SEX: F AGE: 61 : 1955 DATE OF SERVICE: HISTORY OF PRESENT ILLNESS: Jim is a well-known patient to our clinic, who has a history of chronic severe COPD, chronic use of substances, anxiety, history of recent admission with colitis and respiratory failure, severe COPD, malnutrition, and chronic tobacco use. On 12/27, bronchoscopy showed Aspergillus. She is admitted to [facility] after being brought to the emergency room with 4 days of sleepiness and tiredness. On Monday, she was brought in and had lab work done. Her ABGs at that time showed a normal pH, mild increase in CO2. She has had persistent sleepiness, tiredness, sleeping all day, and not eating. She was seen in the emergency room this evening. Her pH is 7.26, pCO2 of 85, PO2 of 230. White count of 12.5, hemoglobin of 11.7, platelet count of 230,000. Sodium 144, potassium 3.7, BUN and creatinine 2 and 0.03. Alcohol level is 4. Amphetamines were positive. Benzodiazepines positive. Cannabinoids positive. Her lactic acid is 0.6. UA was negative. We are going to admit her to [facility] for continued evaluation and care. I do not have her med list. We will admit to ICU. Her does not want her initially intubated, but says that if our BiPAP fails, then he would want her to be fully resuscitated. She also has evidence of mild elevation in her troponin. She is in sinus rhythm. REVIEW OF SYSTEMS: As per HPI. PHYSICAL EXAMINATION: GENERAL: She is well awake. HEENT: Normal. HEART: Regular rhythm. LUNGS: Clear, but diminished to auscultation. ABDOMEN: Soft, nontender, and nondistended. EXTREMITIES: No evidence of peripheral edema. ASSESSMENT: Admission of an elderly white female with severe end-stage ADMIT: 01/19/2017 RM/LOC: 313 [facility] MR#: [id number] [address] [address] [place] [address] History and Physical SEX: F AGE: 61 : 1955 chronic obstructive pulmonary disease, chronic pain syndrome, history of substance abuse; positive for amphetamines, benzodiazepine, and cannabis; history of anxiety, history of colitis, malnutrition, history of chronic tobacco use; recent diagnosis of Aspergillus, is currently on an antifungal, which I do not know the name; evidence of mild leukocytosis, evidence of respiratory failure with CO2 retention. We will admit and place her on BiPAP, ICU care. If she does not have improvement in her ABGs, she will need to be intubated. We will cover with IV antibiotics of Zosyn and pneumatic compression stockings along with TEDs for DVT prophylaxis. Solu-Medrol 40 mg IV every 8 hours. DuoNeb breathing treatments every 4 hours. She has had just a slight elevation in her troponin, and we will do serial cardiac enzymes. Continue to follow closely. Prognosis is guarded. Arpita Humphrey MD/ brittani JOB #: [id number] CC: Darren Benjamin, Attending Physician Darren Benjamin, Family Physician
--- NOTE | 2017-01-25 15:34 | ER ---
ADMIT: 01/19/2017 RM/LOC: 313 [facility] MR#: [id number] [address] [address] JIM BRYANT [address] [place] [address] Emergency Room Report SEX: F AGE: 61 : 1955 DATE: 01/19/2017 ADDENDUM: A 61-year-old, white female coming in with essentially obtunded patient. She is not really responsive. She does have COPD. She continues to smoke and is a substance abuser. Her pCO2 at this time was 82, pH 7.27, pCO2 of 226. This is all worse from her last visit. I did speak with Dr. Humphrey. She received DuoNeb, Decadron, antibiotics. Positive for amphetamines and cannabis as far as the drug screen. CBC, white count is 12,000. Chest x-ray, did not really see anything at this time. At this time, we did do the sepsis protocol. We did go ahead and give her fluids. We also covered her with Zosyn. Dr. Humphrey will need to admit her. We did use BiPAP on her per 's request instead of intubating her. CONDITION ON DISCHARGE: Critical, but stable. Edy Urban MD/ brittani JOB #: [id number] CC: Darren Benjamin DO, Attending Physician Darren Benjamin DO, Family Physician
--- NOTE | 2017-01-31 18:22 | DS ---
ADMIT: 01/19/2017 RM/LOC: 313 [facility] MR#: [id number] [address] [address] JIM BRYANT [address] [place] [address] General Discharge Summary SEX: F AGE: 61 : 1955 ADMISSION DATE: 01/19/2017 DISCHARGE DATE: 01/22/2017 DISCHARGE DIAGNOSES: 1. Severe chronic obstructive pulmonary disease. 2. History of substance abuse with evidence of drug screen positive for cannabis and amphetamines. 3. History of Aspergillus, on current therapy. 4. History of colitis. 5. Chronic respiratory failure with hypercarbia. 6. Persistent tobacco use and malnutrition. HISTORY OF PRESENT ILLNESS: Well-documented in her H and P. LABORATORY AND RADIOGRAPHIC ASSESSMENT: As followed. On admission; her white count was 12,000, hemoglobin of 11.7, platelet count of 238,000. Near discharge, white count was 11, hemoglobin 9.9. Her urinalysis showed no acute abnormalities. Her sodium was 143, potassium 4.1, BUN and creatinine 5 and 0.3. At time of discharge; sodium was 143, BUN and creatinine were 9 and 0.4, blood sugar 121. Initial blood gas showed a pH of 7.267, pCO2 of 85, PO2 of 230. At time of discharge; pH was 7.45, pCO2 of 47, and pO2 of 79. Hepatitis C was reactive. Procalcitonin was 0.05. HIV was negative. Blood cultures showed no growth. CT of chest showed severe emphysema and bronchiectasis and scattered areas of post-inflammatory scarring was dominant which is the posterior by basilar segment of the left lower lobe. Chest x-ray, probable COPD. EKG, sinus rhythm. HOSPITAL COURSE: Jim is a middle-aged patient of Dr. Pinto, who has a history of severe COPD with persistent tobacco use, also polypharmacy with the use of amphetamines and cannabis, who was admitted to [facility] with progressive somnolence. She was seen and evaluated in the ADMIT: 01/19/2017 RM/LOC: 313 [facility] MR#: [id number] [address] [address] JIM BRYANT [address] [place] [address] General Discharge Summary SEX: F AGE: 61 : 1955 emergency room, found to be hypercarbic, respiratory acidosis. Her did not want her intubated. We would treat her aggressively with BiPAP. In addition, IV fluids, Pepcid, started on IV antibiotics and prednisone and steroids. She had continued improvement. She had a history of Aspergillus and was on antifungal treatment, we did resume that. She had improvement and was subsequently discharged to follow up with Dr. Benjamin in 1 week. DIAGNOSIS: Severe chronic obstructive pulmonary disease with tapering dose. LONG-TERM PROGNOSIS: Guarded. Please see her MAR for home meds. Arpita Humphrey MD/ brittani JOB #: [id number] CC: Darren Benjamin DO, Attending Physician Darren Benjamin DO, Family Physician
[2017-02-17] MEDS ORDERED: VFEND200 MG PO (14:09)
[2017-02-17] MEDS ORDERED: NITROSTAT0.4 MG SL (14:11)
[2017-03-04] MEDS ORDERED: MUCINEX600 MG PO (20:09)
[2017-03-04] MEDS ORDERED: PROTONIX40 MG PO (20:09)
[2017-03-04] MEDS ORDERED: ACETYLCYSTEINE 20% IH (20:12)
[2017-03-04] MEDS ORDERED: SPIRIVA18 MCG IH (20:13)
[2017-03-04] MEDS ORDERED: XANAX DPS1 MG PO (20:14)
[2017-03-04] MEDS ORDERED: TYLENOL325 MG PO (20:14)
[2017-03-04] MEDS ORDERED: HYDROCODON-ACE1 EAC6 PO (20:14)
[2017-03-04] MEDS ORDERED: FLAGYL-DPS500 MG PO (20:15)
[2017-03-04] MEDS ORDERED: SLOW-MAG71.5 MG PO (20:16)
[2017-03-04] MEDS ORDERED: COLACE-DPS100 MG PO (20:16)
[2017-03-04] MEDS ORDERED: MAALOX DPS30 ML PO (20:16)
[2017-03-04] MEDS ORDERED: TIAZAC180 MG PO (20:16)
[2017-03-04] MEDS ORDERED: LASIX DPS40 MG PO (20:17)
[2017-03-04] MEDS ORDERED: PROVENTIL2.5 MG/3 M IH (20:17)
[2017-03-04] MEDS ORDERED: KLOR-CON M2020 ME1 PO (20:18)
[2017-04-12] MEDS ORDERED: VIGAMOX3 ML OD (12:17)
[2017-04-12] MEDS ORDERED: DUREZOL5 ML OD (12:19)
[2017-04-12] MEDS ORDERED: CULTURELLE1 CAP PO (12:19)
[2017-04-12] MEDS ORDERED: VANCOCIN125 MG PO (12:20)
[2017-04-12] MEDS ORDERED: PEPCID DPS20 MG PO (12:20)
[2017-04-12] MEDS ORDERED: [UNRECOGNIZED DRUG - OTHER] OD (12:21)
[2017-05-17] MEDS ORDERED: PROVENTIL2.5 MG/3 M IH (13:41)
[2017-05-17] MEDS ORDERED: DELTASONE DPS20 MG PO (13:43)
[2017-05-27] MEDS ORDERED: AUGMENTIN 875-1 EACH PO (14:06)
[2017-05-27] MEDS ORDERED: COLACE-DPS100 MG PO (14:06)
[2017-05-27] MEDS ORDERED: IMODIUM DPS2 MG PO (14:07)
[2017-05-27] MEDS ORDERED: MAALOX DPS30 ML PO (14:07)
[2017-06-12] MEDS ORDERED: ACETYLCYST200 MG/11 IH (14:25)
[2017-06-12] MEDS ORDERED: DULERA 200/58.8 GM IH (14:25)
[2017-06-12] MEDS ORDERED: DUONEB DPS3 ML IH (14:26)
[2017-06-12] MEDS ORDERED: PRILOSEC DPS20 MG PO (14:26)
[2017-06-12] MEDS ORDERED: POTASSIUM CHLO20 ME2 PO (14:26)
[2017-06-12] MEDS ORDERED: VFEND200 MG PO (14:26)
[2017-06-12] MEDS ORDERED: SPIRIVA18 MCG IH (14:26)
[2017-06-12] MEDS ORDERED: DILTIAZEM ER180 M1 PO (14:27)
[2017-06-12] MEDS ORDERED: ZOLOFT100 MG PO (14:27)
[2017-06-12] MEDS ORDERED: DELTASONE DPS10 MG PO (14:27)
[2017-06-12] MEDS ORDERED: MAGNESIUM30 MG PO (14:28)
[2017-06-12] MEDS ORDERED: NORCO 5-325 TA1 EACH PO (14:28)
[2017-06-12] MEDS ORDERED: PROAIR RESPICL90 MCG IH (14:29)
[2017-06-12] MEDS ORDERED: TYLENOL DPS325 MG PO (14:29)
[2017-06-12] MEDS ORDERED: LIDOPATCH1 EACH TD (14:31)
== END 2017-01-22 10:55 | disposition home or self-care (01) | DRG 189 ==
LOC: ER 16:35 → 3ICU 18:00
PROVIDERS: ADMIT Internal Medicine
DX: J96.22 Acute and chronic respiratory failure with hypercapnia (principal); B44.1 Other pulmonary aspergillosis; E46 Unspecified protein-calorie malnutrition; E87.2 Acidosis; J44.9 Chronic obstructive pulmonary disease, unspecified; Z68.1 Body mass index [BMI] 19.9 or less, adult; F15.10 Other stimulant abuse, uncomplicated; F12.10 Cannabis abuse, uncomplicated; F17.210 Nicotine dependence, cigarettes, uncomplicated; F41.9 Anxiety disorder, unspecified; G89.4 Chronic pain syndrome

== ENCOUNTER 2017-02-02 12:10 | Inpatient (IN) | payer MEDICAID ==
[~2017-02-02] VITALS: Ht 157.5 cm; Wt 63.9 kg
[~2017-02-02 12:10] MED LIST changes: +VORICONAZOLE200 MG PO
--- NOTE | 2017-02-07 16:04 | ER ---
ADMIT: 02/02/2017 RM/LOC: 312 [facility] MR#: [id number] [address] [address] JIM BRYANT [address] [place] [address] Emergency Room Report SEX: F AGE: 61 : 1955 DATE: 02/02/2017 ADDENDUM: A 61-year-old white female coming in with shortness of breath. She is obtunded. Makes the sepsis screen. She is hypotensive, her lactate is 2.9, white count is 32,000 with a hemoglobin of 9.8, this could be a combination of infection, COPD stress as well as the steroids that she is on. We did give her a DuoNeb treatment. We are going to give her more steroids, I am going to give her 20 of Decadron IV. I have also given her the mandatory total fluid volume here. We are going to start Levophed and continue fluid. Also started Zosyn. I spoke with Dr. Benjamin, he will need to admit her. CONDITION ON DISCHARGE: Critical. Edy Urban MD/ brittani JOB #: [id number] CC: Darren Benjamin DO, Attending Physician Darren Benjamin DO, Family Physician
--- NOTE | 2017-02-09 12:41 | CO ---
ADMIT: 02/02/2017 RM/LOC: 312 [facility] MR#: [id number] [address] [address] JIM BRYANT [address] [place] [address] Consultation SEX: F AGE: 61 : 1955 DATE OF CONSULTATION: 02/04/2017 ATTENDING PHYSICIAN: Darren Benjamin CONSULTING PHYSICIAN: Donna Pate MD REASON FOR CONSULTATION: Acute kidney injury. HISTORY OF PRESENT ILLNESS: The patient is a 61-year-old female, who has had recurrent admissions to the [facility] mostly because of COPD exacerbation. She was admitted to the hospital this time around two days ago. She presented to the ER somnolent and was found to be in hypercapnic respiratory failure. She was also hypotensive and required pressor support. She was admitted to the ICU and had to be intubated because of her respiratory failure. She remains intubated at this time but has been off pressors. She has her at her bedside. She is unable to give me a history. The corroborates the events above. Her urine output has been dropping over the last 48 hours, and her serum creatinine has climbed from 0.4 upon admission to 1.5 two days ago, 2.1 yesterday, and 3.3 this morning. She has only made about 250 mL of urine over the last 24 hours. REVIEW OF SYSTEMS: Unobtainable secondary to patient's condition. PAST MEDICAL HISTORY: 1. Severe COPD with frequent exacerbations. 2. Polysubstance abuse. 3. Colitis and anemia. 4. Pulmonary aspergillosis. 5. Anxiety. ALLERGIES: MORPHINE. MEDICATIONS: Reviewed and addressed in the chart. SOCIAL HISTORY: Lives with her . She has a history of polysubstance abuse that is well documented. FAMILY HISTORY: Reportedly, no family history of chronic kidney disease or replacement therapy. PHYSICAL EXAMINATION: VITAL SIGNS: Temperature 98.3 Fahrenheit, pulse 107, blood pressure 129/85. GENERAL: She is intubated. HEENT: Head is nontraumatic and normocephalic. Pale conjunctivae. CHEST: Clear to auscultation. CVS: Tachycardic. S1 and S2 heard. No rubs, murmurs, or gallops. ABDOMEN: Soft and nontender. EXTREMITIES: No edema. SKIN: No rash or nodules. ADMIT: 02/02/2017 RM/LOC: 312 [facility] MR#: [id number] [address] [address] [facility] [place] [address] Consultation SEX: F AGE: 61 : 1955 NEUROLOGIC: She is intubated and sedated. MUSCULOSKELETAL: Major joints are within normal limits. LABORATORY DATA: Reviewed. BMP with sodium 137, potassium 5.5, CO2 of 22, creatinine 3.3, CK 138, hemoglobin 7.8. White count 12.1. Urinalysis with 2+ protein, negative blood, negative leukocyte esterase. Her chest x-ray showed a right lower lobe pneumonia. Her most recent ABG showed a pH of 7.275 with a pCO2 of 44, and PO2 of 73.6. Blood cultures x2 have been negative thus far. ASSESSMENT AND PLAN: 1. Acute kidney injury-this is most likely secondary to acute tubular necrosis. She has oliguric acute renal failure. She does not have any emergent indication for renal replacement therapy, but may need it moving forward. I discussed this with her who is agreeable to renal replacement therapy if needed. For the time being, continue supportive care and avoid nephrotoxins such as NSAIDs, IV contrast, or Fleets enemas. Monitor kidney function, electrolytes, and acid-base status closely. 2. Hyperkalemia-I will change her tube feeds to Nepro and monitor her potassium levels. 3. Metabolic and respiratory acidosis-she is on a ventilator. Her metabolic acidosis is likely secondary to renal failure. 4. Medication management-I will change her Lovenox to subcutaneous heparin. I will resume her voriconazole considering her history of pulmonary aspergillosis. Thank you for this consultation. Donna Pate MD/ brittani JOB #: [id number] CC: Darren Benjamin, Attending Physician Darren Benjamin, Family Physician
--- NOTE | 2017-02-14 13:27 | OR ---
ADMIT: 02/02/2017 RM/LOC: 312 [facility] MR#: [id number] 2620 [facility] [address] [place], [place] [address] JIM BRYANT [address] [place] [address] Operative/Delivery Room Report SEX: F AGE: 61 : 1955 SURGERY DATE: 02/05/2017 SURGEON: Denis Diallo MD PREPROCEDURAL DIAGNOSIS: Need for urgent dialysis access. PROCEDURE: Placement of right IJ temporary dialysis catheter here at the bedside in the ICU using ultrasound. ESTIMATED BLOOD LOSS: 10 mL or less. ANESTHESIA: Local anesthetic. DESCRIPTION OF PROCEDURE: She is already intubated and sedated. Full gown, gloves, and sterile precautions prep was used. After the risks, benefits, possible complications, and alternatives had been explained, and informed consent had been obtained from the family here at the bedside. The right IJ was sterilely prepped and draped. The ultrasound was used to identify the right internal jugular vein nicely. We used some local anesthetic for the skin. The needle was introduced into the subclavian vein. Guidewire was passed and dilated over top of the guidewire with two dilators. The temporary dialysis catheter was then placed without difficulty and sewn into position. There was good flushing of all three ports. Tolerated the procedure well. X- ray is currently pending. Denis Diallo MD/ brittani JOB #: [id number] CC: Darren Benjamin, Attending Physician Darren Benjamin, Family Physician
[2017-02-17] MEDS ORDERED: VFEND200 MG PO (14:09)
[2017-02-17] MEDS ORDERED: NITROSTAT0.4 MG SL (14:11)
--- NOTE | 2017-02-20 16:50 | CO ---
ADMIT: 02/02/2017 RM/LOC: 312 [facility] MR#: [id number] [facility]#: [id number] [address] [address] JIM BRYANT [address] [place] [address] Consultation SEX: F AGE: 61 : 1955 Corrected: 02/05/2017 1513 ajf DATE OF CONSULTATION: 02/02/2017 ATTENDING PHYSICIAN: Darren Benjamin CONSULTING PHYSICIAN: Glenn Coleman MD REASON: Acute hypercapnic respiratory failure. HISTORY OF PRESENT ILLNESS: The patient is a 61-year-old female with a history of O2 dependent COPD, recently admitted to the hospital and treated for respiratory failure and pneumonia. She comes into the emergency room with positive sepsis screen, hypotension, and elevated lactate. Arterial blood gas shows pCO2 of 140 with a pH of 7.0. They called me from the ICU when she was transferred on BiPAP and I asked Anesthesia to intubate. She was intubated and now is sedated on propofol. PAST MEDICAL HISTORY: Reviewed from her most recent hospitalization. 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 REVIEW OF SYSTEMS: Unobtainable. MEDICATIONS: Reviewed from home. ALLERGIES: NONE. SOCIAL HISTORY: . [place] in town. Never smoked, but significant secondhand smoke exposure. FAMILY HISTORY: Unobtainable, otherwise. SOCIAL HISTORY: Unobtainable, otherwise. PHYSICAL EXAMINATION: VITAL SIGNS: Temp 98, pulse 80, respirations 12, and 130/70. HEENT: Intubated. Pupils equal, round, and reactive to light and accommodation. NECK: No JVD or bruits. HEART: Regular rate. No murmur or gallop. LUNGS: Rhonchi, right greater than left. ABDOMEN: Soft. Bowel sounds positive. Nontender. Nondistended. No organosplenomegaly. EXTREMITIES: Shows no cyanosis, clubbing, or edema. LABORATORY AND X-RAY DATA: Chest x-ray on admission, lower lobe infiltrates. INR was normal. Lactate was 2.9. Positive benzodiazepine, cannabinoids. ADMIT: 02/02/2017 RM/LOC: 312 [facility] MR#: [id number] [address] [address] JIM BRYANT [address] [place] [address] Consultation SEX: F AGE: 61 : 1955 Negative for amphetamines. White count 32,100, hemoglobin 9.8, and platelets were 212,000. Arterial blood gases show pH 7.0 on BiPAP with pCO2 of 141. IMPRESSION: 1. Acute hypercapnic respiratory failure secondary to underlying sepsis, pneumonia, and severe COPD (chronic obstructive pulmonary disease). Currently, intubated on mechanical ventilation. Empiric antibiotics have been initiated. Quantitative mini BAL will be asked for and that will be performed. Neb treatments. Sedation with propofol. 2. She has sepsis. No evidence of shock currently. Lactate is elevated, we will repeat in 4 hours. 3. Health care associated pneumonia, but recent Aspergillus. We will treat for empiric healthcare associated pathogens given her recent admissions and mechanical ventilation. BAL is pending culture. 4. Severe chronic obstructive pulmonary disease, steroids neb treatments. 5. Prior history of Aspergillus. Glenn Coleman MD/ modl JOB #: [id number] CC: Darren Benjamin, Attending Physician Darren Benjamin, Family Physician Corrected: 02/05/2017 1513 [facility]
[2017-03-04] MEDS ORDERED: PROTONIX40 MG PO (20:09)
[2017-03-04] MEDS ORDERED: MUCINEX600 MG PO (20:09)
[2017-03-04] MEDS ORDERED: ACETYLCYSTEINE 20% IH (20:12)
[2017-03-04] MEDS ORDERED: SPIRIVA18 MCG IH (20:13)
[2017-03-04] MEDS ORDERED: XANAX DPS1 MG PO (20:14)
[2017-03-04] MEDS ORDERED: HYDROCODON-ACE1 EAC6 PO (20:14)
[2017-03-04] MEDS ORDERED: TYLENOL325 MG PO (20:14)
[2017-03-04] MEDS ORDERED: FLAGYL-DPS500 MG PO (20:15)
[2017-03-04] MEDS ORDERED: SLOW-MAG71.5 MG PO (20:16)
[2017-03-04] MEDS ORDERED: MAALOX DPS30 ML PO (20:16)
[2017-03-04] MEDS ORDERED: TIAZAC180 MG PO (20:16)
[2017-03-04] MEDS ORDERED: COLACE-DPS100 MG PO (20:16)
[2017-03-04] MEDS ORDERED: PROVENTIL2.5 MG/3 M IH (20:17)
[2017-03-04] MEDS ORDERED: LASIX DPS40 MG PO (20:17)
[2017-03-04] MEDS ORDERED: KLOR-CON M2020 ME1 PO (20:18)
--- NOTE | 2017-04-03 08:35 | DS ---
ADMIT: 02/02/2017 RM/LOC: 417 [facility] MR#: [id number] [address] [address] [place] [address] General Discharge Summary SEX: F AGE: 61 : 1955 ADMISSION DATE: 02/02/2017 DISCHARGE DATE: 02/16/2017 REASON FOR HOSPITALIZATION: Respiratory failure acute in nature. HISTORY OF PRESENT ILLNESS: This is a 61-year-old female patient, who has recurrent episodes of acute respiratory failure and presented to the emergency room obtunded. Dr. Humphrey was on at the time of admission, and performed her initial assessment and consulted Pulmonary Critical Care. She was intubated, placed in the intensive care unit, started on IV Decadron, Levaquin, and Zosyn. She does have severe underlying COPD. Her chest x-ray did show emphysema, but no obvious infiltrate. Culture evaluation was performed and was negative. Followup chest x-ray did show bilateral consolidation consistent with pneumonia and underlying sepsis was also added to her diagnosis list along with acute kidney injury. We gave her IV fluids. Pulmonary perform CT scan of her head and we supported her. We asked Dr. Pate to see the patient and assist with fluid management. He felt her MARVA was due to ATN. He replaced electrolytes and continue to monitor. She had BAL performed, which showed strep sensitive to Levaquin with diagnosis of HCAP and sepsis with underlying severe COPD. Her management continued with support. She was ultimately able to be extubated and started on dialysis. We addressed malnutrition with nutritional supports and tube feeds. Slowly her status stabilized. Her renal failure stabilized with dialysis. We did follow thrombocytopenia through her hospital course. On 02/08, she was stable to transfer from intensive care unit to telemetry status. She was noted to be anemic. On 02/10, she was stable. We stopped her Solu-Medrol and switch her to oral prednisone. By 02/13, she was stable and capable of transfer to [facility] after hemodialysis was performed on that day. She was to receive a weaning course of prednisone initially at 20 mg in the morning and 10 mg in the evening. She was return to see me in 2 weeks. FINAL DIAGNOSES: 1. Acute kidney injury on renal replacement therapy/hemodialysis. 2. Healthcare associated pneumonia. 3. Chronic obstructive pulmonary disease with acute hypercapnic respiratory failure. 4. Malnutrition. 5. Metabolic acidosis. 6. Anemia. 7. History of peptic ulcer disease. 8. Pulmonary aspergillosis. Dr. Pate, however, held the transition up until she could receive a more permanent IV dialysis access. She did receive temporary tunneled catheter on 02/14/2017, and thereafter she was transfused a unit of packed red blood cells for her anemia of chronic disease. On 02/16, she was transferred to the ADMIT: 02/02/2017 RM/LOC: 417 [facility] MR#: [id number] [address] [place] [address] [place] [address] General Discharge Summary SEX: F AGE: 61 : 1955 m[facility]p on: 1. BuSpar 10 mg b.i.d. 2. Carafate 1 g p.o. before meals and at bedtime. 3. Diltiazem 20 mg in the morning. 4. Mucinex 600 mg b.i.d. 5. Protonix 40 mg b.i.d. 6. VFEND 200 mg p.o. b.i.d. 7. Zoloft 100 mg p.o. daily. 8. Dulera 200, 2 puffs b.i.d. 9. DuoNeb q.i.d. 10.Mucomyst b.i.d. 11.Spiriva 1 puff daily. Darren Benjamin DO/ brittani JOB #: [id number] CC: Darren Benjamin DO, Attending Physician Darren Benjamin DO, Family Physician
[2017-04-12] MEDS ORDERED: VIGAMOX3 ML OD (12:17)
[2017-04-12] MEDS ORDERED: DUREZOL5 ML OD (12:19)
[2017-04-12] MEDS ORDERED: CULTURELLE1 CAP PO (12:19)
[2017-04-12] MEDS ORDERED: VANCOCIN125 MG PO (12:20)
[2017-04-12] MEDS ORDERED: PEPCID DPS20 MG PO (12:20)
[2017-04-12] MEDS ORDERED: [UNRECOGNIZED DRUG - OTHER] OD (12:21)
[2017-05-17] MEDS ORDERED: PROVENTIL2.5 MG/3 M IH (13:41)
[2017-05-17] MEDS ORDERED: DELTASONE DPS20 MG PO (13:43)
[2017-05-27] MEDS ORDERED: AUGMENTIN 875-1 EACH PO (14:06)
[2017-05-27] MEDS ORDERED: COLACE-DPS100 MG PO (14:06)
[2017-05-27] MEDS ORDERED: MAALOX DPS30 ML PO (14:07)
[2017-05-27] MEDS ORDERED: IMODIUM DPS2 MG PO (14:07)
[2017-06-12] MEDS ORDERED: ACETYLCYST200 MG/11 IH (14:25)
[2017-06-12] MEDS ORDERED: DULERA 200/58.8 GM IH (14:25)
[2017-06-12] MEDS ORDERED: DUONEB DPS3 ML IH (14:26)
[2017-06-12] MEDS ORDERED: POTASSIUM CHLO20 ME2 PO (14:26)
[2017-06-12] MEDS ORDERED: VFEND200 MG PO (14:26)
[2017-06-12] MEDS ORDERED: SPIRIVA18 MCG IH (14:26)
[2017-06-12] MEDS ORDERED: PRILOSEC DPS20 MG PO (14:26)
[2017-06-12] MEDS ORDERED: DILTIAZEM ER180 M1 PO (14:27)
[2017-06-12] MEDS ORDERED: ZOLOFT100 MG PO (14:27)
[2017-06-12] MEDS ORDERED: DELTASONE DPS10 MG PO (14:27)
[2017-06-12] MEDS ORDERED: NORCO 5-325 TA1 EACH PO (14:28)
[2017-06-12] MEDS ORDERED: MAGNESIUM30 MG PO (14:28)
[2017-06-12] MEDS ORDERED: TYLENOL DPS325 MG PO (14:29)
[2017-06-12] MEDS ORDERED: PROAIR RESPICL90 MCG IH (14:29)
[2017-06-12] MEDS ORDERED: LIDOPATCH1 EACH TD (14:31)
== END 2017-02-16 17:14 | DRG 871 ==
LOC: ER 12:10 → 3ICU 14:35 → 4PCU 02-09 01:37
PROVIDERS: ADMIT Internal Medicine
PROC: 0B938ZX Drainage of Right Main Bronchus, Via Natural or Artificial Opening Endoscopic, Diagnostic (ICD-10-PCS; principal; 2017-02-02)
PROC: 5A1945Z Respiratory Ventilation, 24-96 Consecutive Hours (ICD-10-PCS; principal; 2017-02-02)
PROC: 0BH17EZ Insertion of Endotracheal Airway into Trachea, Via Natural or Artificial Opening (ICD-10-PCS; principal; 2017-02-02)
PROC: B543ZZA Ultrasonography of Right Jugular Veins, Guidance (ICD-10-PCS; 2017-02-05)
PROC: 5A1D60Z (ICD-10-PCS; 2017-02-05)
PROC: 05H533Z Insertion of Infusion Device into Right Subclavian Vein, Percutaneous Approach (ICD-10-PCS; 2017-02-05)
PROC: 30243N1 Transfusion of Nonautologous Red Blood Cells into Central Vein, Percutaneous Approach (ICD-10-PCS; 2017-02-09)
PROC: 02PY33Z Removal of Infusion Device from Great Vessel, Percutaneous Approach (ICD-10-PCS; 2017-02-14)
PROC: B513ZZA Fluoroscopy of Right Jugular Veins, Guidance (ICD-10-PCS; 2017-02-14)
PROC: 0JH63XZ Insertion of Tunneled Vascular Access Device into Chest Subcutaneous Tissue and Fascia, Percutaneous Approach (ICD-10-PCS; 2017-02-14)
PROC: B543ZZA Ultrasonography of Right Jugular Veins, Guidance (ICD-10-PCS; 2017-02-14)
PROC: 05HM33Z Insertion of Infusion Device into Right Internal Jugular Vein, Percutaneous Approach (ICD-10-PCS; 2017-02-14)
DX: A41.9 Sepsis, unspecified organism (principal); J13 Pneumonia due to Streptococcus pneumoniae; J96.22 Acute and chronic respiratory failure with hypercapnia; N17.0 Acute kidney failure with tubular necrosis; E87.4 Mixed disorder of acid-base balance; I95.9 Hypotension, unspecified; D69.6 Thrombocytopenia, unspecified; Z68.1 Body mass index [BMI] 19.9 or less, adult; E46 Unspecified protein-calorie malnutrition; J44.0 Chronic obstructive pulmonary disease with (acute) lower respiratory infection; R65.20 Severe sepsis without septic shock; E87.5 Hyperkalemia; D64.9 Anemia, unspecified; F17.210 Nicotine dependence, cigarettes, uncomplicated; G89.4 Chronic pain syndrome; F15.10 Other stimulant abuse, uncomplicated; F41.9 Anxiety disorder, unspecified; Z99.81 Dependence on supplemental oxygen; Z87.11 Personal history of peptic ulcer disease

== ENCOUNTER 2017-02-23 14:44 | Inpatient (IN) | payer MEDICAID ==
[~2017-02-23] VITALS: Ht 157.5 cm; Wt 55.3 kg
[~2017-02-23 14:44] MED LIST changes: +NITROSTAT0.4 MG SL; +VFEND200 MG PO
--- NOTE | 2017-02-27 08:01 | HP ---
ADMIT: 02/23/2017 RM/LOC: 405 [facility] MR#: [id number] [address] [address] JIM BRYANT [place], [place] [id number] History and Physical SEX: F AGE: 61 : 1955 DATE OF SERVICE: REASON FOR ADMISSION: Progressive pulmonary compromise, evidence of a right- sided pneumonia. HISTORY OF PRESENT ILLNESS: Ms. Bryant is a 61-year-old white female, who has a past medical history of end-stage renal disease, recently was hospitalized with acute renal failure with no recovery, is currently on hemodialysis. She has severe end-stage COPD, chronic pain syndrome. She recently was hospitalized and intubated with sepsis. She, this afternoon was at the detention and had some decreased level of consciousness, was brought to the ER for further evaluation. She was seen by Dr. De Leon in ER, he asked Jim if she wished to be intubated, she said no. She had been given Narcan x2. In the ER, her white count was 9.6, hemoglobin 8.6, and platelet count 149,000. Sodium of 142, potassium 3.7, BUN and creatinine 23 and 1.7. AST 87, alkaline phosphatase 145, blood sugar 165, albumin 2.9. CK 23, MB 1.5, troponin 0.050. BNP 3854. UA showed specific gravity of 1.07, protein 1+, blood 1+. Her ABG showed a pH of 7.125, pCO2 of 84, and pO2 of 88. Prolactin is 0.41. Lactic acid 0.9. Chest x-ray, right lower lobe pneumonia. PHYSICAL EXAMINATION: GENERAL: Her assessment is, she will arouse, will open her eyes. HEENT: Pupils are equal, reactive to light. LUNGS: Very diminished. VITAL SIGNS: Respirations on BiPAP are in the mid 40s. Her blood pressure is 130/80. Her heart rate is sinus tachycardia. She is currently on BiPAP at 10/5, maintaining a sat. This is a difficult situation, her family in [place] has asked for intubation when her called them, but they have not been here this last past years with her frequent admissions. Her is anxious and unsure, but at this time after had that conversation with Dr. De Leon, is in agreement of DNR status at this time. He would like her to have antibiotics as well as continue BiPAP. At this time, we will place her DNR/DNI status, no ADMIT: 02/23/2017 RM/LOC: 405 [facility] MR#: [id number] [address] [place] [id number] [facility] [place] [address] History and Physical SEX: F AGE: 61 : 1955 intubation, BiPAP, respiratory treatments, antibiotic, no hemodialysis at this time. We will provide supportive care. DIAGNOSES: 1. End-stage chronic obstructive pulmonary disease. 2. Pneumonia. 3. Respiratory failure. 4. End-stage renal disease, on hemodialysis. 5. Respiratory acidosis. 6. Hypercarbia. We, at this time will place on telemetry, DNR/DNI status. We will continue supportive care. Arpita Humphrey MD/ brittani JOB #: [id number] CC: Darren Benjamin, Attending Physician Darren Benjamin, Family Physician
--- NOTE | 2017-02-28 14:25 | CO ---
ADMIT: 02/23/2017 RM/LOC: 405 [facility] MR#: [id number] [address] [address] [place] [address] Consultation SEX: F AGE: 61 : 1955 DATE OF CONSULTATION: 02/24/2017 ATTENDING PHYSICIAN: Darren Benjamin CONSULTING PHYSICIAN: Taty Jacobsen APRN TIME IN: 1100 hours. TIME OUT: 1150 hours. REASON FOR CONSULTATION: Supportive care consultation was requested by Dr. Benjamin for discussion of code status and goals for care. HISTORY OF PRESENT ILLNESS: Jim is a 61-year-old, female with a significantly complex past medical history. She has a history of severe COPD, as well as chronic pain, chronic substance abuse, history of Aspergillus, acute kidney injury requiring hemodialysis. She has had multiple hospital stays over the course of the past couple years with various issues. She was admitted most recently, 02/02 through 02/16 with sepsis and was intubated during that time. As mentioned, she suffered acute kidney injury and has been requiring hemodialysis since that stay. She eventually discharged to [facility] for skilled care. She was readmitted early this morning with decreasing level of consciousness and respiratory failure. Chest x-ray revealed pneumonia. There was discussion regarding intubation and code status in the emergency room, and the patient directed no intubation and a DNR. However, she did waiver at times regarding this. Due to her complexities, supportive care consultation was requested to discuss goals for care and code status. In terms of advanced directives, she has not completed any advanced directives that I am aware of. She is a DNR/DNI currently. Her Jonathan Bryant whose phone# [phone] and [phone] is the patient's next of kin medical decision maker. Symptomatically, the patient denies any major complaints. She is weak and debilitated. She denies dyspnea or pain currently. PAST MEDICAL HISTORY: 1. End-stage COPD. 2. Chronic substance abuse. 3. Anxiety. 4. Colitis. 5. Aspergillus. 6. Anemia. ALLERGIES: THE PATIENT IS ALLERGIC TO MORPHINE. CURRENT MEDICATIONS: Please see the patient's MAR for specific routes and dosages. Her current medications are as follows. 1. Solu-Medrol. ADMIT: 02/23/2017 RM/LOC: 405 [facility] MR#: [id number] [address] [address] [facility] [place] [address] Consultation SEX: F AGE: 61 : 1955 2. Zosyn. 3. Maalox. 4. Tylenol. 5. Colace. 6. Nitrostat. 7. DuoNeb. 8. Dilaudid. 9. Ativan. 10.D5 half-normal saline. SOCIAL HISTORY: The patient is . She was living at home up until her last hospital stay and then went to skilled care. She has a history of polysubstance abuse that is very well documented. FAMILY HISTORY: Reviewed and noncontributory. FUNCTIONAL REVIEW: Prior to her hospital stay, she states that she was ambulating with PT at the skilled facility. She was requiring some assistance with ADLs. Her palliative performance scale prior to admission was around 50% to 60%. Currently, she is in bed. She is mainly assistance. She is tired. Her current palliative performance scale is 40%. REVIEW OF SYSTEMS: A 10-point review of systems was completed and other than those pertinent positives and negatives mentioned in HPI, it is negative. PHYSICAL EXAMINATION: GENERAL: The patient is examined in the bed. She is in no acute distress. VITAL SIGNS: Temperature 98.5, pulse 99, respirations 20, blood pressure 128/84, oxygen 100% on 6 L per nasal cannula. HEENT: Head is normocephalic. Pupils are equal, round, and reactive with a diameter of 3 mm bilaterally. Oral mucosa pink and moist with fair dentition. NECK: Supple. RESPIRATORY: Respirations are equal and nonlabored at rest. LUNGS: Diminished throughout. CARDIOVASCULAR: Rate and rhythm regular without murmurs, rubs, or gallops. No edema noted. GASTROINTESTINAL: Soft, nontender. Bowel sounds are positive. She reports a bowel movement yesterday. INTEGUMENTARY: Skin turgor is fair. She does have bruising noted over the right upper chest from her dialysis catheter placement. NEUROLOGIC: Alert and oriented x3. She will follow commands. PSYCHIATRIC: Calm and cooperative for the most part. She is anxious at times. No delirium noted. DIAGNOSTIC DATA: Sodium 143, potassium 4.0, BUN 28, creatinine 1.7, total protein 5.0, albumin 2.4. WBC 9.7, hemoglobin 7.3, hematocrit 25.4, platelets are 116. ADMIT: 02/23/2017 RM/LOC: 405 [facility] MR#: [id number] [address] [place] [id number] [place] [address] Consultation SEX: F AGE: 61 : 1955 IMPRESSION: 1. Physical debility. 2. Anxiety. 3. Fatigue. 4. Malaise. 5. Severe protein-calorie malnutrition. 6. Difficulty coping. 7. End-stage chronic obstructive pulmonary disease with acute exacerbation. 8. Acute kidney injury. 9. Pneumonia. 10.Respiratory failure. 11.History of polysubstance abuse. 12.History of Aspergillus. 13.Chronic pain. 14.Palliative care. 15.The patient is a DNR/DNI. PLAN: 1. I was able to meet with the patient and her at the bedside. We reviewed her overall status and goals for the time ahead. She reports that Dr. Benjamin did inform her today that she is nearing the end of her life. We discussed this at length including the status of her diseases including her end-stage chronic obstructive pulmonary disease. We did discuss her goals and she is hopeful for improvement with the goal of rehab in the time ahead. I did encourage hope in the patient, but was clear with her that this may be difficult given her lung issues. She verbalizes understanding of this. I did discuss the hospice philosophy and benefit with the patient and her and I am clear with her that she would qualify for hospice if she desires this path. At this point, she is not ready for hospice and she desires ongoing aggressive care including rehospitalization with decline. She does agree to ongoing discussions regarding this with me in the time ahead. 2. We did have a long talk about code status including the benefit versus burden of full code status versus do not resuscitate/do not intubate status. At this point, the patient is very clear that she does not wish to be intubated. Again, she hesitates on the DNR aspect, and I explained that this would be futile with the knowledge that she does not wish to be intubated, and also explained that CPR would hurt her more than help her ADMIT: 02/23/2017 RM/LOC: 405 [facility] MR#: [id number] [address] [place] [address] JIM BRYANT [facility] [place] [address] Consultation SEX: F AGE: 61 : 1955 given her comorbidities. She and spouse are going to discuss things a little further. The DNR/DNI is in place currently. The patient desperately wants her to support her decisions and he does state that he supports whatever she wants in terms of her code status, however, he is understandably sad about her overall decline. I will let them talk for couple hours and will return this afternoon to hopefully solidify the patient's wishes for the time ahead. We would like to thank Dr. Benjamin for the invitation to participate in this patient's care. Total consultation time was 50 minutes with 30 minutes from 1105 hours to 1135 hours spent [id number] with the patient and her discussing goals for care and providing counseling and support. The plan of care was discussed with nursing. We will follow. Taty Jacobsen APRN/ brittani JOB #: [id number] CC: Darren Benjamin, Attending Physician Darren Benjamin, Family Physician
[2017-03-04] MEDS ORDERED: MUCINEX600 MG PO (20:09)
[2017-03-04] MEDS ORDERED: PROTONIX40 MG PO (20:09)
[2017-03-04] MEDS ORDERED: ACETYLCYSTEINE 20% IH (20:12)
[2017-03-04] MEDS ORDERED: SPIRIVA18 MCG IH (20:13)
[2017-03-04] MEDS ORDERED: TYLENOL325 MG PO (20:14)
[2017-03-04] MEDS ORDERED: XANAX DPS1 MG PO (20:14)
[2017-03-04] MEDS ORDERED: HYDROCODON-ACE1 EAC6 PO (20:14)
[2017-03-04] MEDS ORDERED: FLAGYL-DPS500 MG PO (20:15)
[2017-03-04] MEDS ORDERED: MAALOX DPS30 ML PO (20:16)
[2017-03-04] MEDS ORDERED: COLACE-DPS100 MG PO (20:16)
[2017-03-04] MEDS ORDERED: TIAZAC180 MG PO (20:16)
[2017-03-04] MEDS ORDERED: SLOW-MAG71.5 MG PO (20:16)
[2017-03-04] MEDS ORDERED: LASIX DPS40 MG PO (20:17)
[2017-03-04] MEDS ORDERED: PROVENTIL2.5 MG/3 M IH (20:17)
[2017-03-04] MEDS ORDERED: KLOR-CON M2020 ME1 PO (20:18)
--- NOTE | 2017-03-05 01:14 | ER ---
ADMIT: 02/23/2017 RM/LOC: 405 [facility] MR#: [id number] [address] [address] JIM BRYANT [place], [place] [address] Emergency Room Report SEX: F AGE: 61 : 1955 DATE: 02/23/2017 ADDENDUM: See T-sheet for complete H and P. The patient is a 61-year-old female with numerous significant chronic medical issues including severe COPD, who comes in from [place] [facility] with decreased level of alertness in addition to some intermittent anxiety and difficulty breathing. We did go ahead and do a sepsis workup on the patient. She was obviously in some respiratory distress when she arrived, tachycardic, taking shallow deep breaths, and not moving air well. She was quite rhonchorous on auscultation more so on the right than the left with decreased breath sounds bilaterally. We did get an ABG which showed she was experiencing respiratory acidosis. I asked the patient whether she wanted to be intubated and she indicated that she did not. She was asked later by her , and she wavered for a while and seemed to temporarily agree to it, but she was asked again and was adamant that she did not want to be intubated. We had her on BiPAP while she was in the Emergency Department. An x-ray was done, which reveals likely right lower lobe pneumonia, and she was started on Solu-Medrol and Levaquin in the Emergency Department. I contacted Dr. Humphrey who is on for the patient's primary care physician is now with the patient. She did see the patient in the Emergency Department and at this point, we verified the patient is a DNR/DNI based on her wishes. One hour critical care time was spent on this patient and she is admitted with the diagnoses of: 1. Respiratory failure. 2. Respiratory acidosis. 3. Severe chronic obstructive pulmonary disease. 4. Pneumonia. Edson De Leon MD/ brittani JOB #: [id number] CC: Darren Benjamin DO, Attending Physician Darren Benjamin DO, Family Physician
--- NOTE | 2017-03-07 10:38 | CO ---
ADMIT: 02/23/2017 RM/LOC: 405 [facility] MR#: [id number] [address] [address] [place] [address] Consultation SEX: F AGE: 61 : 1955 DATE OF CONSULTATION: 02/24/2017 ATTENDING PHYSICIAN: Darren Benjamin CONSULTING PHYSICIAN: oDnna Pate MD REASON FOR CONSULTATION: Acute kidney injury on hemodialysis. HISTORY OF PRESENT ILLNESS: The patient is a 61-year-old female, who was recently hospitalized for COPD exacerbation. She had acute renal failure during that hospitalization with non-recovery of kidney function for which we had to initiate dialysis. Her last dialysis also is past Monday. She is admitted now with a right lower lobe pneumonia. She has noticed increased urinary output over the last week or so. Her creatinine has been in the 1.8- 1.7 range. Her creatinine again is 1.7 today. Her last dialysis was 2 days ago. She notes that her breathing has improved. She denies any fever at home. She is very anxious and actually thinks that it was her anxiety attack that had put her in the hospital. She notes more urine. Denies any burning urination. Denies any dizziness or lightheadedness. Appetite has been poor. Denies any abdominal complaints. Denies any skin rash. REVIEW OF SYSTEMS: A complete review of systems is negative in detail except as mentioned in history of present illness above. PAST MEDICAL HISTORY: 1. Severe COPD with frequent exacerbations. 2. Polysubstance abuse. 3. Colitis and anemia. 4. Pulmonary aspergillosis. 5. Anxiety. 6. Acute kidney injury requiring hemodialysis. ALLERGIES: MORPHINE. MEDICATIONS: Reviewed and addressed in the chart. SOCIAL HISTORY: Lives with her . Most recently, she was discharged to [facility]. She has a history of polysubstance abuse. FAMILY HISTORY: No family history of chronic kidney disease or renal replacement therapy. PHYSICAL EXAMINATION: VITAL SIGNS: Temperature 98.5 Fahrenheit, pulse 99, blood pressure 128/84. GENERAL: She is on BiPAP. HEENT: Head is nontraumatic, normocephalic. Pale conjunctivae. CHEST: Decreased breath sounds bilaterally. Scattered wheeze is heard. CVS: Regular rhythm. S1 and S2. No rubs, murmurs, or gallops. ABDOMEN: Soft. ADMIT: 02/23/2017 RM/LOC: 405 [facility] MR#: [id number] [address] [address] [place] [address] Consultation SEX: F AGE: 61 : 1955 EXTREMITIES: 1 to 2+ lower extremity edema. She has some upper extremity edema as well. SKIN: No rash or nodules. She has a tunnel dialysis catheter in the right IJ vein. MUSCULOSKELETAL: Major joints within normal. Range of motion within normal limits. PSYCHIATRIC: She is anxious. LABORATORY DATA: Reviewed. Her pCO2 was 57.6. PH was 7.302. Her sodium was 143, potassium 4.2, creatinine 1.7. Calcium 8.1, albumin 2.4. Hemoglobin 7.3. Chest x-ray with bibasilar consolidation. ASSESSMENT AND PLAN: Acute kidney injury-she is nonoliguric and is making more urine now. Her creatinine is 1.7. There is no emergent indication for renal replacement therapy. I will hold off on hemodialysis today and monitor her kidney function. I recommend avoiding nephrotoxins such as NSAIDs, IV contrast, and fleets enemas. I recommend supportive renal care. As far as her antibiotics are concerned, her vancomycin level is appropriate today, and I will hold off on the vancomycin doses today. She has respiratory acidosis and is on BiPAP. Monitor her hemoglobin as well. Thank you for this consultation. Please do not hesitate to contact if you have any questions. Donna Pate MD/ brittani JOB #: [id number] CC: Darren Benjamin, Attending Physician Darren Benjamin, Family Physician
--- NOTE | 2017-04-06 08:18 | DS ---
ADMIT: 02/23/2017 RM/LOC: 405 [facility] MR#: [id number] [address] [address] JIM [place]YANT [place], [place] [address] Discharge Summary SEX: F AGE: 61 : 1955 ADMISSION DATE: 02/23/2017 DISCHARGE DATE: 03/02/2017 REASON FOR HOSPITALIZATION: 1. Right-sided pneumonia. 2. Respiratory failure. HISTORY OF PRESENT ILLNESS: A 61-year-old female patient, who appears older than her stated age, who has a history of end-stage COPD, chronic pain syndrome, narcotic and non prescription drug abuse, and illicit drug abuse. She presented to the emergency room in respiratory failure and was subsequently intubated and placed in the intensive care unit. The patient was critically ill and was started on IV antibiotics and nebulized treatments. IV steroids, she was given Ativan and at the time of presentation, family was not completely sure as to how to approach her code status or ongoing cares. We did have palliative care consult and over the course of the ensuing 48 to 72 hours, the patient stabilized and improved. At this point, family decided that they did want full course of cares. She was ultimately extubated and we had Speech evaluate. We had significant concerns that she was using sedative medications in the home and the patient's sisters and family suggested that her admitted to giving her some of his "medications," which would be methadone in order to treat her pain at home. This would fit with her recurrent episodes of respiratory failure along with presumed CO2 narcosis and possible sleep apnea. After a long and supportive course of care, the patient improved. She did have acute kidney injury when she presented and Dr. Pate followed until this resolved back to baseline and provided recommendations on medications and fluid therapies. She ultimately was able to transition to the lesser level of care up on the floor and was then found to have C difficile colitis. I started her on oral Flagyl. Pharmacy followed and assisted with antibiotic management and dosing. Potassium was replaced for hypokalemia and at one point, she did have a paroxysm of atrial fibrillation, and was noted to have hypomagnesemia, which was replaced. She also had heparin-induced thrombocytopenia and we stopped her heparin. I did discuss with her on several occasions, her drug use patterns and the fact that these are significant contributors to her recurrent respiratory failure and CO2 narcosis. She understood this discussion and expressed her willingness to improve, but then also in the next breath, requested more pain management thus confirming a poor insight into her overall issue. On 03/02, we began arranging for [facility] and [facility] care. FINAL DIAGNOSES: 1. Pneumonia. 2. Respiratory failure. 3. Clostridium difficile colitis. ADMIT: 02/23/2017 RM/LOC: 405 [facility] MR#: [id number] [address] [place] [address] Discharge Summary SEX: F AGE: 61 : 1955 4. Renal failure. 5. Acute kidney injury. 6. Hypokalemia. 7. Hypomagnesemia. 8. Hypertension. 9. Paroxysmal atrial fibrillation. 10.Severe chronic obstructive pulmonary disease. 11.Heparin-induced thrombocytopenia. 12.Anemia. She was to return to see me in 2 weeks. Have a basic metabolic profile performed within the week following dismissal and she was to be dismissed on Lasix 40 mg daily and potassium 20 mEq daily. Darren Benjamin DO/ modl JOB #: [id number] CC: Darren Benjamin DO, Attending Physician Darren Benjamin DO, Family Physician
[2017-04-12] MEDS ORDERED: VIGAMOX3 ML OD (12:17)
[2017-04-12] MEDS ORDERED: CULTURELLE1 CAP PO (12:19)
[2017-04-12] MEDS ORDERED: DUREZOL5 ML OD (12:19)
[2017-04-12] MEDS ORDERED: VANCOCIN125 MG PO (12:20)
[2017-04-12] MEDS ORDERED: PEPCID DPS20 MG PO (12:20)
[2017-04-12] MEDS ORDERED: [UNRECOGNIZED DRUG - OTHER] OD (12:21)
[2017-05-17] MEDS ORDERED: PROVENTIL2.5 MG/3 M IH (13:41)
[2017-05-17] MEDS ORDERED: DELTASONE DPS20 MG PO (13:43)
[2017-05-27] MEDS ORDERED: COLACE-DPS100 MG PO (14:06)
[2017-05-27] MEDS ORDERED: AUGMENTIN 875-1 EACH PO (14:06)
[2017-05-27] MEDS ORDERED: MAALOX DPS30 ML PO (14:07)
[2017-05-27] MEDS ORDERED: IMODIUM DPS2 MG PO (14:07)
[2017-06-12] MEDS ORDERED: DULERA 200/58.8 GM IH (14:25)
[2017-06-12] MEDS ORDERED: ACETYLCYST200 MG/11 IH (14:25)
[2017-06-12] MEDS ORDERED: PRILOSEC DPS20 MG PO (14:26)
[2017-06-12] MEDS ORDERED: SPIRIVA18 MCG IH (14:26)
[2017-06-12] MEDS ORDERED: VFEND200 MG PO (14:26)
[2017-06-12] MEDS ORDERED: DUONEB DPS3 ML IH (14:26)
[2017-06-12] MEDS ORDERED: POTASSIUM CHLO20 ME2 PO (14:26)
[2017-06-12] MEDS ORDERED: ZOLOFT100 MG PO (14:27)
[2017-06-12] MEDS ORDERED: DILTIAZEM ER180 M1 PO (14:27)
[2017-06-12] MEDS ORDERED: DELTASONE DPS10 MG PO (14:27)
[2017-06-12] MEDS ORDERED: NORCO 5-325 TA1 EACH PO (14:28)
[2017-06-12] MEDS ORDERED: MAGNESIUM30 MG PO (14:28)
[2017-06-12] MEDS ORDERED: TYLENOL DPS325 MG PO (14:29)
[2017-06-12] MEDS ORDERED: PROAIR RESPICL90 MCG IH (14:29)
[2017-06-12] MEDS ORDERED: LIDOPATCH1 EACH TD (14:31)
== END 2017-03-02 15:10 | DRG 189 ==
LOC: ER 14:44 → 4PCU 16:35
PROVIDERS: ADMIT Internal Medicine
DX: J96.02 Acute respiratory failure with hypercapnia (principal); E43 Unspecified severe protein-calorie malnutrition; J18.9 Pneumonia, unspecified organism; N17.9 Acute kidney failure, unspecified; E87.2 Acidosis; A04.7 Enterocolitis due to Clostridium difficile; J44.0 Chronic obstructive pulmonary disease with (acute) lower respiratory infection; D75.82 Heparin induced thrombocytopenia (HIT); J44.1 Chronic obstructive pulmonary disease with (acute) exacerbation; E83.42 Hypomagnesemia; I48.0 Paroxysmal atrial fibrillation; E87.6 Hypokalemia; F41.9 Anxiety disorder, unspecified; D64.9 Anemia, unspecified; G89.4 Chronic pain syndrome; Z66 Do not resuscitate

== ENCOUNTER 2017-06-07 13:38 | Inpatient (IN) | payer MEDICAID ==
[~2017-06-07] VITALS: Ht 157.5 cm; Wt 48.4 kg
[~2017-06-07 13:38] MED LIST changes: +ACETYLCYSTEINE 20% IH; +AUGMENTIN 875-1 EACH PO; +COLACE-DPS100 MG PO; +CULTURELLE1 CAP PO; +DUREZOL5 ML OD; +FLAGYL-DPS500 MG PO; +HYDROCODON-ACE1 EAC6 PO; +KLOR-CON M2020 ME1 PO; +LASIX DPS40 MG PO; +MUCINEX600 MG PO; +PROVENTIL2.5 MG/3 M IH; +SLOW-MAG71.5 MG PO; +TIAZAC180 MG PO; +VIGAMOX3 ML OD; +[UNRECOGNIZED DRUG - OTHER] OD
--- NOTE | 2017-06-08 13:34 | ER ---
ADMIT: 06/07/2017 RM/LOC: 313 [facility] MR#: [id number] [address] [address] J[place] BRYANT [address] [place] [id number] Emergency Room Report SEX: F AGE: 61 : 1955 DATE: 06/07/2017 HISTORY OF PRESENT ILLNESS: Ms. Funez is a 61-year-old, who presents to emergency room with her with increased confusion, drug abuse history, poor alertness. REVIEW OF SYSTEMS: I am unable to wake her up, but apparently says she got up today, made breakfast and after that, she has been obtunded. PAST MEDICAL HISTORY: 1. Bleeding ulcers. 2. Emphysema. 3. COPD. 4. Cataract surgery. MEDICATIONS: Her medications are quite extensive. See T-sheet. ALLERGIES: NO KNOWN DRUG ALLERGIES. PHYSICAL EXAMINATION: VITAL SIGNS: Blood pressure 140/97, heart rate of 94, respirations 24, temperature is 97.7, O2 sats 93% at 3 L. GENERAL: She is obtunded. NEURO: Unable to test neuro higher function as she is not responding. NECK: Supple. RESPIRATIONS: No distress. CVS: Regular rate and rhythm. ABDOMEN: Nontender. SKIN: Good color. No rash. EXTREMITIES: Well perfused. LABORATORY DATA: CBC normal. Hemoglobin of 9.9, hematocrit is 31.6 with platelets of 257. Total protein is 5.9 with a bicarb of 33. Alkaline phosphatase 683, AST 110, ALT 105. Lactate 0.4. UA, normal. X-ray, normal. ADMIT: 06/07/2017 RM/LOC: 313 [facility] MR#: [id number] [address] [address] J[place] [address] [place] [address] Emergency Room Report SEX: F AGE: 61 : 1955 ABGs at 3 L; pH is 7.3 with a pCO2 of 54.3, and PO2 of 128. Dr. Benjamin contacted, coming to see the patient. She was given Narcan 0.4 mg IV, and did not even work for her. Got started on IV normal saline at 100 mL, 1 L. CLINICAL IMPRESSION: 1. Hypercarbia. 2. CO2 exacerbation. She will be put on BiPAP. Dr. Benjamin came over and visited with the patient. She did also receive a DuoNeb that really did not improve her wheezing. DEANDRE Venegas / Edy Urban MD / modl JOB #: [id number] CC: Darren Benjamin DO, Attending Physician Darren Benjamin DO, Family Physician
[2017-06-12] MEDS ORDERED: ACETYLCYST200 MG/11 IH (14:25)
[2017-06-12] MEDS ORDERED: DULERA 200/58.8 GM IH (14:25)
[2017-06-12] MEDS ORDERED: POTASSIUM CHLO20 ME2 PO (14:26)
[2017-06-12] MEDS ORDERED: PRILOSEC DPS20 MG PO (14:26)
[2017-06-12] MEDS ORDERED: DUONEB DPS3 ML IH (14:26)
[2017-06-12] MEDS ORDERED: SPIRIVA18 MCG IH (14:26)
[2017-06-12] MEDS ORDERED: VFEND200 MG PO (14:26)
[2017-06-12] MEDS ORDERED: DELTASONE DPS10 MG PO (14:27)
[2017-06-12] MEDS ORDERED: DILTIAZEM ER180 M1 PO (14:27)
[2017-06-12] MEDS ORDERED: ZOLOFT100 MG PO (14:27)
[2017-06-12] MEDS ORDERED: NORCO 5-325 TA1 EACH PO (14:28)
[2017-06-12] MEDS ORDERED: MAGNESIUM30 MG PO (14:28)
[2017-06-12] MEDS ORDERED: PROAIR RESPICL90 MCG IH (14:29)
[2017-06-12] MEDS ORDERED: TYLENOL DPS325 MG PO (14:29)
[2017-06-12] MEDS ORDERED: LIDOPATCH1 EACH TD (14:31)
== END 2017-06-11 15:25 | disposition home health service (06) | DRG 982 ==
LOC: ER 13:38 → 3ICU 17:05 → 4PCU 06-08 16:58
PROVIDERS: ADMIT Internal Medicine
PROC: 5A09357 Assistance with Respiratory Ventilation, Less than 24 Consecutive Hours, Continuous Positive Airway Pressure (ICD-10-PCS; 2017-06-07)
PROC: 0QU13JZ Supplement Sacrum with Synthetic Substitute, Percutaneous Approach (ICD-10-PCS; principal; 2017-06-09)
DX: J44.1 Chronic obstructive pulmonary disease with (acute) exacerbation (principal); J96.12 Chronic respiratory failure with hypercapnia; B44.1 Other pulmonary aspergillosis; S32.10XA Unspecified fracture of sacrum, initial encounter for closed fracture; N13.30 Unspecified hydronephrosis; W19.XXXA Unspecified fall, initial encounter; F19.10 Other psychoactive substance abuse, uncomplicated; F41.9 Anxiety disorder, unspecified; B19.20 Unspecified viral hepatitis C without hepatic coma; R33.9 Retention of urine, unspecified; Z87.11 Personal history of peptic ulcer disease